=== PATIENT | female | born 1990 | race Caucasian/White ===

== ENCOUNTER 2017-07-02 17:05 | Day surgery (SDC) | payer BC, OTHER ==
[2017-07-02] MEDS ORDERED: Ondansetron 4 MG/2 ML SDV ONE (17:26)
[2017-07-02] MEDS ORDERED: Rocuronium 50 MG/5 ML Vial ONE (17:26)
[2017-07-02] MEDS ORDERED: fentaNYL 250 MCG/5 ML SDV ONE (17:27)
[2017-07-02] MEDS ORDERED: Lidocaine 1% 4 ML ONE (17:27)
[2017-07-02] MEDS ORDERED: Propofol 200 MG/20 ML SDV ONE (17:27)
[2017-07-02] MEDS ORDERED: Bupivacaine 0.5% 30 ML SDV ONE (17:42)
[2017-07-02] MEDS ORDERED: ceFAZolin 1 GM Vial ONE (18:02)
[2017-07-02] MEDS ORDERED: Lactated Ringers 1,000 ML ONE (18:13)
[2017-07-02] MEDS ORDERED: HYDROmorphone 0.5 MG/0.5 ML Syringe IVPUSH PRN (18:55)
[2017-07-02] MEDS ORDERED: fentaNYL 250 MCG/5 ML SDV IVPUSH PRN (18:55)
[2017-07-02] MEDS ORDERED: Ketorolac 30 MG/ML SDV IVPUSH PRN (18:55)
[2017-07-02] MEDS ORDERED: Meperidine PF 50 MG/ML Syringe IVPUSH ONE (18:57)
--- NOTE | 2017-07-02 18:59 | PCM.POSTAN ---
POST ANESTHESIA ASSESSMENT - MENTAL STATUS Mental Status: Somnolent - VITAL SIGNS Pulse Rate: 108 SaO2: 100 Resp Rate: 8 Blood Pressure: 128/67 Temperature: 36.8 C - RESPIRATORY Respiratory Status: Respiratory Rate WNL, Airway Patent, O2 Saturation Stable, Supplemental Oxygen - CARDIOVASCULAR CV Status: Pulse Rate WNL, Blood Pressure Stable - GASTROINTESTINAL GI Status: No Symptoms - PAIN Pain Score: 0 - POST OP HYDRATION Hydration Status: Adequate & Stable - OBSERVATIONS Free Text/Narrative:: no anesthesia complications noted
--- NOTE | 2017-07-02 19:00 | PCM.PREANE ---
Preanesthetic Assessment - Anesthesia/Transfusion/Family Hx Anesthesia History: Prior Anesthesia Without Reaction Family History of Anesthesia Reaction: No Transfusion History: No Prior Transfusion(s) - Review of Systems General: Fatigue, Chills Pulmonary: No Symptoms Cardiovascular: No Symptoms Gastrointestinal: No Symptoms Neurological: No Symptoms Other: Reports: None - Physical Assessment NPO Status Date: 07/02/17 NPO Status Time: 12:30 Pulse: 108 O2 Sat by Pulse Oximetry: 100 Respiratory Rate: 8 Blood Pressure: 128/67 Temperature: 36.8 C Vital Signs: Last Vital Signs Temp 36.8 C 07/02/17 18:59 Pulse 108 H 07/02/17 18:59 Resp 8 L 07/02/17 18:59 BP 128/67 07/02/17 18:59 Pulse Ox 100 07/02/17 18:59 Height: 1.68 m Weight: 68.039 kg ASA Class: 2E Mental Status: Alert & Oriented x3 Airway Class: Mallampati = 1 Dentition: Reports: Normal Dentition Thyro-Mental Finger Breadths: 3 Mouth Opening Finger Breadths: 3 ROM/Head Extension: Full Lungs: Clear to Auscultation, Normal Respiratory Effort Cardiovascular: Regular Rate, Regular Rhythm, No Murmurs - Allergies Allergies/Adverse Reactions: Allergies Allergy/AdvReac Type Severity Reaction Status Date / Time silver nitrate Allergy Blisters Verified 04/26/15 11:49 - Anesthesia Plan Pre-Op Medication Ordered: None - Acknowledgements Anesthesia Type Planned: General Anesthesia Pt an Appropriate Candidate for the Planned Anesthesia: Yes Alternatives and Risks of Anesthesia Discussed w Pt/Guardian: Yes Pt/Guardian Understands and Agrees with Anesthesia Plan: Yes PreAnesthesia Questionnaire HEENT History: Reports: Impaired Vision Gastrointestinal History: Reports: GERD Genitourinary History: Reports: Retention, Urinary, UTI, Recurrent Other Musculoskeletal History: spinal fusion 2002 for scolosis and fractured 4th finger 2007 - Past Surgical History Other Female Surgeries/Procedures: laparoscopy x2 2014 and 2015 ectopic pregnacy Other Musculoskeletal Surgeries/Procedures:: spinal fusion 2002 for scolosis and fractured 4th finger 2007 - SUBSTANCE USE Smoking Status *Q: Never Smoker Second Hand Smoke Exposure: No Days Per Week of Alcohol Use: 0 Number of Drinks Per Day: 0 Total Drinks Per Week: 0 Recreational Drug Use History: No - HOME MEDS Home Medications: Home Meds Acetaminophen [Tylenol] 650 mg PO Q6H PRN #50 tablet 10/07/14 [Rx] Ibuprofen [Motrin] 200 - 800 mg PO Q6H PRN #50 tablet 10/07/14 [Rx] Fish Oil/[place]-3 Fatty Acids [Fish Oil 1,000 MG] 1,000 mg PO DAILY 04/26/15 [ History] Multivitamin [Daily Multiple Vitamin] 1 tab PO DAILY 04/26/15 [History] - CURRENT (IN HOUSE) MEDS Current Meds: Current Medications Fentanyl (Sublimaze) 50 mcg IVPUSH Q5M PRN PRN Reason: PAIN Hydromorphone HCl (Dilaudid) 0.5 mg IVPUSH Q15M PRN PRN Reason: Pain Ketorolac Tromethamine (Toradol) 30 mg IVPUSH ONETIME PRN PRN Reason: Pain Meperidine HCl (Demerol) 12.5 mg IVPUSH ONETIME ONE Stop: 07/02/17 18:58 Discontinued Medications Bupivacaine HCl (Marcaine 0.5%) Confirm Administered Dose 30 ml .ROUTE .STK-MED ONE Stop: 07/02/17 17:43 Last Admin: 07/02/17 17:55 Dose: 30 ml Cefazolin Sodium (Ancef) Confirm Administered Dose 2 gm .ROUTE .STK-MED ONE Stop: 07/02/17 18:03 Fentanyl (Sublimaze) Confirm Administered Dose 250 mcg .ROUTE .STK-MED ONE Stop: 07/02/17 17:28 Lidocaine HCl (Xylocaine-Mpf 1%) Confirm Administered Dose 4 mls @ as directed .ROUTE .STK-MED ONE Stop: 07/02/17 17:28 Lactated Ringer's (Ringers, Lactated) Confirm Administered Dose 1,000 mls @ as directed .ROUTE .STK-MED ONE Stop: 07/02/17 18:14 Ondansetron HCl (Zofran) Confirm Administered Dose 4 mg .ROUTE .STK-MED ONE Stop: 07/02/17 17:27 Propofol (Diprivan 20 Ml) Confirm Administered Dose 200 mg .ROUTE .STK-MED ONE Stop: 07/02/17 17:28 Rocuronium [place] (Zemuron) Confirm Administered Dose 50 mg .ROUTE .STK-MED ONE Stop: 07/02/17 17:27
[2017-07-02] MEDS ORDERED: fentaNYL 100 MCG/2 ML SDV IV PRN (19:04)
--- NOTE | 2017-07-02 19:35 | PCM.OPNOTE ---
- General Post-Op/Procedure Note Date of Surgery/Procedure: 07/02/17 Operative Procedure(s): Laparoscopy with right linear salpingectomy for ectopic [id number] Pre Op Diagnosis: Positive test pelvic pain and vaginal bleeding suspected ectopic right fallopian tube Post-Op Diagnosis: Same Anesthesia Technique: General ET Tube Primary Surgeon: Dontae Burton Secondary Surgeon: Scotty Olivier Anesthesia Provider: Nicho Moreno Reason Ethylbenzene Converter Operator Was Necessary: Patient safety, prevention of comorbidity and cardinal mortality, assistance in difficult procedure. Role of Ethylbenzene Converter Operator: Assist in surgery preventing comorbidity and comortality and assisting and technically difficult procedure. Fluid Replacement, Intraop: 1,700 Output, Urine Amount: 70 EBL in mLs: 25 Drain/Tube Comments:: None Complications: None Condition: Good Free Text/Narrative:: Intake & Output 07/02/17 07/02/17 07/02/17 06:59 14:59 22:59 Output Total 70 Balance -70 Patient was transported to operating room #2 and placed under general anesthesia in low dorsal lithotomy position and prepared and draped in a sterile fashion. Timeout performed. SCDs in place and functioning prior surgery , Ancef 2 g given intravenously prior surgery. Patient having been prepared and draped in a sterile fashion 2 mL of 0.5% Marcaine injected the site of the planned incision at the umbilicus and suprapubic region 5 mm incision made at the umbilicus pneumoperitoneum needle introduced and pneumoperitoneum was obtained 5 mm trocar was introduced. An additional port was placed suprapubically to allow placement of another 5 mm port for manipulation of the tissue and organs of the pelvis. The laparoscopy revealed ectopic and hemoperitoneum of approximately 25 mL of blood. The right fallopian tube had not ruptured the fallopian tube, but blood was egressing from the fimbriated end of the fallopian tube. The suprapubic incision was extended to accommodate the 12 mm port. The 12 mm port was introduced without difficulty. Examination of the right fallopian tube revealed area of cyanosis and swelling consistent with an ectopic . A third port was placed on the right side after transillumination of the abdominal wall revealed no vascular the anterior in that region. A linear salpingostomy was performed and tissue was manipulated carefully out of the fallopian tube. This tissue was sent to pathology for tissue evaluation. Irrigation of the area of the linear salpingostomy was performed and irrigant was then aspirated from the anterior and posterior cul-de -sac. Observation of the area revealed no bleeding. No additional swelling areas of cyanosis to indicate removing additional tissue or making an additional incision in the fallopian tube. Interceed was placed across the area of the linear salpingostomy. After moistening same and further evaluation no bleeding. Sponge needle pack instrument and sharp count correct 2 and the abdominal cavity pneumoperitoneum was reduced and the incisions closed with 0 Vicryl for the area where the 10 mm port had been placed suprapubically. The 3 incisions were then closed with subcuticular 3-0 Monocryl and Dermabond applied. The Luu catheter was removed. Review of the pictures taken image 001 shows blood clot at the end of the fallopian tube in the center of the picture of fallopian tube with ectopic on the left upper quadrant of the picture and the right ovary directly above the blood clot. Image 002 shows a better view of the area of suspected ectopic and right fallopian tube. Image 003 shows a close- up of the fimbriated end of fallopian tube. The ovary is seen in the center of the picture just above the fallopian tube which is swollen and cyanotic consistent with ectopic . Image 004 shows tissue being teased from the fallopian tube after linear salpingostomy. Image 005 shows additional tissue being teased from the fallopian tube which consistent with ectopic ( sent to pathology for confirmation) image 006 shows the linear salpingostomy after removal of what appeared to be ectopic with no bleeding. Right ovary is seen just below the fallopian tube and the large intestines just left of the ovary. Image 007 shows Interceed after placement over the linear salpingostomy area. Image 008 shows the fundus of the uterus anterior cul-de- sac and the left adnexa. Image 009 shows left adnexa. Image 010 shows the right flank incision after removal of the 5 mm trocar with no bleeding. Image 011 shows the suprapubic 12 mm port after closure of the anterior fascia was 0 Vicryl. No bleeding. Image 012 shows the Interceed on the right side just prior to removal of the laparoscope. Talked with the and mother and [id number] all questions were answered voiced satisfaction. I talked with the patient in recovery and explained what procedure was performed and we will discuss again with her tomorrow about the procedure. Blood type is O+.
[2017-07-02] MEDS ORDERED: Ondansetron 4 MG/2 ML SDV IVPUSH PRN (20:11)
[2017-07-02] MEDS ORDERED: Ibuprofen 600 MG Tab PO PRN (20:11)
[2017-07-02] MEDS ORDERED: Docusate Sodium 100 MG Cap PO SCH (21:00)
[2017-07-02] MEDS: Acetaminophen/oxyCODONE 325-5 MG Tab PO PRN (21:25)
[2017-07-03] MEDS: Ketorolac 30 MG/ML SDV IVPUSH SCH ×2 (00:22→07:12)
[2017-07-03 09:12] VITALS: BP 109/74
[2017-07-03] MEDS: Acetaminophen/oxyCODONE 325-5 MG Tab PO PRN (11:43)
--- NOTE | 2017-07-03 11:51 | PCM.DCSUM1 ---
Discharge Summary - Hospital Course Free Text/Narrative:: [facility] Post-Op/Procedure Note Patient Name: GAYLE FERGUSON Date of : 89 Patient Status: Observation Attending Provider: Dontae Burton Date: 07/02/17 19:22 Initialization Date: 07/02/17 19:22 - General Post-Op/Procedure Note Date of Surgery/Procedure: 07/02/17 Operative Procedure(s): Laparoscopy with right linear salpingectomy for ectopic 89395 Pre Op Diagnosis: Positive test pelvic pain and vaginal bleeding suspected ectopic right fallopian tube Post-Op Diagnosis: Same Anesthesia Technique: General ET Tube Primary Surgeon: Dontae Burton Secondary Surgeon: Scotty Olivier Anesthesia Provider: Nicho Moreno Reason Medical Terminologist Was Necessary: Patient safety, prevention of comorbidity and cardinal mortality, assistance in difficult procedure. Role of Medical Terminologist: Assist in surgery preventing comorbidity and comortality and assisting and technically difficult procedure. Fluid Replacement, Intraop: 1,700 Output, Urine Amount: 70 EBL in mLs: 25 Drain/Tube Comments:: None Complications: None Condition: Good Free Text/Narrative:: Intake & Output 07/02/17 07/02/17 07/02/17 06:59 14:59 22:59 Output Total 70 Balance -70 Patient was transported to operating room #2 and placed under general anesthesia in low dorsal lithotomy position and prepared and draped in a sterile fashion. Timeout performed. SCDs in place and functioning prior surgery , Ancef 2 g given intravenously prior surgery. Patient having been prepared and draped in a sterile fashion 2 mL of 0.5% Marcaine injected the site of the planned incision at the umbilicus and suprapubic region 5 mm incision made at the umbilicus pneumoperitoneum needle introduced and pneumoperitoneum was obtained 5 mm trocar was introduced. An additional port was placed suprapubically to allow placement of another 5 mm port for manipulation of the tissue and organs of the pelvis. The laparoscopy revealed ectopic and hemoperitoneum of approximately 25 mL of blood. The right fallopian tube had not ruptured the fallopian tube, but blood was egressing from the fimbriated end of the fallopian tube. The suprapubic incision was extended to accommodate the 12 mm port. The 12 mm port was introduced without difficulty. Examination of the right fallopian tube revealed area of cyanosis and swelling consistent with an ectopic . A third port was placed on the right side after transillumination of the abdominal wall revealed no vascular the anterior in that region. A linear salpingostomy was performed and tissue was manipulated carefully out of the fallopian tube. This tissue was sent to pathology for tissue evaluation. Irrigation of the area of the linear salpingostomy was performed and irrigant was then aspirated from the anterior and posterior cul-de -sac. Observation of the area revealed no bleeding. No additional swelling areas of cyanosis to indicate removing additional tissue or making an additional incision in the fallopian tube. Interceed was placed across the area of the linear salpingostomy. After moistening same and further evaluation no bleeding. Sponge needle pack instrument and sharp count correct 2 and the abdominal cavity pneumoperitoneum was reduced and the incisions closed with 0 Vicryl for the area where the 10 mm port had been placed suprapubically. The 3 incisions were then closed with subcuticular 3-0 Monocryl and Dermabond applied. The Luu catheter was removed. Review of the pictures taken image 001 shows blood clot at the end of the fallopian tube in the center of the picture of fallopian tube with ectopic on the left upper quadrant of the picture and the right ovary directly above the blood clot. Image 002 shows a better view of the area of suspected ectopic and right fallopian tube. Image 003 shows a close- up of the fimbriated end of fallopian tube. The ovary is seen in the center of the picture just above the fallopian tube which is swollen and cyanotic consistent with ectopic . Image 004 shows tissue being teased from the fallopian tube after linear salpingostomy. Image 005 shows additional tissue being teased from the fallopian tube which consistent with ectopic ( sent to pathology for confirmation) image 006 shows the linear salpingostomy after removal of what appeared to be ectopic with no bleeding. Right ovary is seen just below the fallopian tube and the large intestines just left of the ovary. Image 007 shows Interceed after placement over the linear salpingostomy area. Image 008 shows the fundus of the uterus anterior cul-de- sac and the left adnexa. Image 009 shows left adnexa. Image 010 shows the right flank incision after removal of the 5 mm trocar with no bleeding. Image 011 shows the suprapubic 12 mm port after closure of the anterior fascia was 0 Vicryl. No bleeding. Image 012 shows the Interceed on the right side just prior to removal of the laparoscope. Talked with the and mother and [id number] all questions were answered voiced satisfaction. I talked with the patient in recovery and explained what procedure was performed and we will discuss again with her tomorrow about the procedure. Blood type is O+. Patient having no abdominal pain at present. Abdomen soft. Incisions on abdomen normal. No heavy vaginal bleeding. HPI Initial Comments: [facility] Post-Op/Procedure Note Patient Name: GAYLE FERGUSON Date of : 89 Patient Status: Observation Attending Provider: Dontae Burton Date: 07/02/17 19:22 Initialization Date: 07/02/17 19:22 - General Post-Op/Procedure Note Date of Surgery/Procedure: 07/02/17 Operative Procedure(s): Laparoscopy with right linear salpingectomy for ectopic [id number] Pre Op Diagnosis: Positive test pelvic pain and vaginal bleeding suspected ectopic right fallopian tube Post-Op Diagnosis: Same Anesthesia Technique: General ET Tube Primary Surgeon: Dontae Burton Secondary Surgeon: Scotty Olivier Anesthesia Provider: Nicho Moreno Reason Medical Terminologist Was Necessary: Patient safety, prevention of comorbidity and cardinal mortality, assistance in difficult procedure. Role of Medical Terminologist: Assist in surgery preventing comorbidity and comortality and assisting and technically difficult procedure. Fluid Replacement, Intraop: 1,700 Output, Urine Amount: 70 EBL in mLs: 25 Drain/Tube Comments:: None Complications: None Condition: Good Free Text/Narrative:: Intake & Output 07/02/17 07/02/17 07/02/17 06:59 14:59 22:59 Output Total 70 Balance -70 Patient was transported to operating room #2 and placed under general anesthesia in low dorsal lithotomy position and prepared and draped in a sterile fashion. Timeout performed. SCDs in place and functioning prior surgery , Ancef 2 g given intravenously prior surgery. Patient having been prepared and draped in a sterile fashion 2 mL of 0.5% Marcaine injected the site of the planned incision at the umbilicus and suprapubic region 5 mm incision made at the umbilicus pneumoperitoneum needle introduced and pneumoperitoneum was obtained 5 mm trocar was introduced. An additional port was placed suprapubically to allow placement of another 5 mm port for manipulation of the tissue and organs of the pelvis. The laparoscopy revealed ectopic and hemoperitoneum of approximately 25 mL of blood. The right fallopian tube had not ruptured the fallopian tube, but blood was egressing from the fimbriated end of the fallopian tube. The suprapubic incision was extended to accommodate the 12 mm port. The 12 mm port was introduced without difficulty. Examination of the right fallopian tube revealed area of cyanosis and swelling consistent with an ectopic . A third port was placed on the right side after transillumination of the abdominal wall revealed no vascular the anterior in that region. A linear salpingostomy was performed and tissue was manipulated carefully out of the fallopian tube. This tissue was sent to pathology for tissue evaluation. Irrigation of the area of the linear salpingostomy was performed and irrigant was then aspirated from the anterior and posterior cul-de -sac. Observation of the area revealed no bleeding. No additional swelling areas of cyanosis to indicate removing additional tissue or making an additional incision in the fallopian tube. Interceed was placed across the area of the linear salpingostomy. After moistening same and further evaluation no bleeding. Sponge needle pack instrument and sharp count correct 2 and the abdominal cavity pneumoperitoneum was reduced and the incisions closed with 0 Vicryl for the area where the 10 mm port had been placed suprapubically. The 3 incisions were then closed with subcuticular 3-0 Monocryl and Dermabond applied. The Ulu catheter was removed. Review of the pictures taken image 001 shows blood clot at the end of the fallopian tube in the center of the picture of fallopian tube with ectopic on the left upper quadrant of the picture and the right ovary directly above the blood clot. Image 002 shows a better view of the area of suspected ectopic and right fallopian tube. Image 003 shows a close- up of the fimbriated end of fallopian tube. The ovary is seen in the center of the picture just above the fallopian tube which is swollen and cyanotic consistent with ectopic . Image 004 shows tissue being teased from the fallopian tube after linear salpingostomy. Image 005 shows additional tissue being teased from the fallopian tube which consistent with ectopic ( sent to pathology for confirmation) image 006 shows the linear salpingostomy after removal of what appeared to be ectopic with no bleeding. Right ovary is seen just below the fallopian tube and the large intestines just left of the ovary. Image 007 shows Interceed after placement over the linear salpingostomy area. Image 008 shows the fundus of the uterus anterior cul-de- sac and the left adnexa. Image 009 shows left adnexa. Image 010 shows the right flank incision after removal of the 5 mm trocar with no bleeding. Image 011 shows the suprapubic 12 mm port after closure of the anterior fascia was 0 Vicryl. No bleeding. Image 012 shows the Interceed on the right side just prior to removal of the laparoscope. Talked with the and mother and [id number] all questions were answered voiced satisfaction. I talked with the patient in recovery and explained what procedure was performed and we will discuss again with her tomorrow about the procedure. Blood type is O+. Patient having no abdominal pain at present. Abdomen soft. Incisions on abdomen normal. No heavy vaginal bleeding. Brief History: [facility] . Post-Op/Procedure Note. Patient Name: GAYLE FERGUSON [facility] Record Number: [id number]. Date of : [birth year]Patient Status: Observation. Attending Provider: Dontae Burtonccount Number: [id number]. Date: 07/02/17 19:22Initialization Date: 07/02/17 19:22. - General Post-Op/Procedure Note. Date of Surgery/Procedure: 07/02/17. Operative Procedure(s): Laparoscopy with right linear salpingectomy for ectopic 21519. Pre Op Diagnosis: Positive test pelvic pain and vaginal bleeding suspected ectopic right fallopian tube. Post-Op Diagnosis: Same. Anesthesia Technique: General ET Tube. Primary Surgeon: Dontae Burton. Secondary Surgeon: Scotty Olivier. Anesthesia Provider: Nicho Moreno. Reason Medical Terminologist Was Necessary: Patient safety, prevention of comorbidity and cardinal mortality, assistance in difficult procedure. Role of Medical Terminologist: Assist in surgery preventing comorbidity and comortality and assisting and technically difficult procedure. Fluid Replacement, Intraop: 1, 700. Output, Urine Amount: 70. EBL in mLs: 25. Drain/Tube Comments:: None. Complications: None. Condition: Good. Free Text/Narrative:: Intake & Output. 07/02/1710. 06:5914:5922:59. Output Total70. Balance-70. Patient was transported to operating room #2 and placed under general anesthesia in low dorsal lithotomy position and prepared and draped in a sterile fashion. Timeout performed. SCDs in place and functioning prior surgery , Ancef 2 g given intravenously prior surgery. Patient having been prepared and draped in a sterile fashion 2 mL of 0.5% Marcaine injected the site of the planned incision at the umbilicus and suprapubic region 5 mm incision made at the umbilicus pneumoperitoneum needle introduced and pneumoperitoneum was obtained 5 mm trocar was introduced. An additional port was placed suprapubically to allow placement of another 5 mm port for manipulation of the tissue and organs of the pelvis. The laparoscopy revealed ectopic and hemoperitoneum of approximately 25 mL of blood. The right fallopian tube had not ruptured the fallopian tube, but blood was egressing from the fimbriated end of the fallopian tube. The suprapubic incision was extended to accommodate the 12 mm port. The 12 mm port was introduced without difficulty. Examination of the right fallopian tube revealed area of cyanosis and swelling consistent with an ectopic . A third port was placed on the right side after transillumination of the abdominal wall revealed no vascular the anterior in that region. A linear salpingostomy was performed and tissue was manipulated carefully out of the fallopian tube. This tissue was sent to pathology for tissue evaluation. Irrigation of the area of the linear salpingostomy was performed and irrigant was then aspirated from the anterior and posterior cul-de -sac. Observation of the area revealed no bleeding. No additional swelling areas of cyanosis to indicate removing additional tissue or making an additional incision in the fallopian tube. Interceed was placed across the area of the linear salpingostomy. After moistening same and further evaluation no bleeding. Sponge needle pack instrument and sharp count correct 2 and the abdominal cavity pneumoperitoneum was reduced and the incisions closed with 0 Vicryl for the area where the 10 mm port had been placed suprapubically. The 3 incisions were then closed with subcuticular 3-0 Monocryl and Dermabond applied. The Luu catheter was removed. Review of the pictures taken image 001 shows blood clot at the end of the fallopian tube in the center of the picture of fallopian tube with ectopic on the left upper quadrant of the picture and the right ovary directly above the blood clot. Image 002 shows a better view of the area of suspected ectopic and right fallopian tube. Image 003 shows a close-up of the fimbriated end of fallopian tube. The ovary is seen in the center of the picture just above the fallopian tube which is swollen and cyanotic consistent with ectopic . Image 004 shows tissue being teased from the fallopian tube after linear salpingostomy. Image 005 shows additional tissue being teased from the fallopian tube which consistent with ectopic (sent to pathology for confirmation) image 006 shows the linear salpingostomy after removal of what appeared to be ectopic with no bleeding. Right ovary is seen just below the fallopian tube and the large intestines just left of the ovary. Image 007 shows Interceed after placement over the linear salpingostomy area. Image 008 shows the fundus of the uterus anterior cul-de-sac and the left adnexa. Image 009 shows left adnexa. Image 010 shows the right flank incision after removal of the 5 mm trocar with no bleeding. Image 011 shows the suprapubic 12 mm port after closure of the anterior fascia was 0 Vicryl. No bleeding. Image 012 shows the Interceed on the right side just prior to removal of the laparoscope. Talked with the and mother and [id number] all questions were answered voiced satisfaction. I talked with the patient in recovery and explained what procedure was performed and we will discuss again with her tomorrow about the procedure. Blood type is O+. Patient having no abdominal pain at present. Abdomen soft. Incisions on abdomen normal. No heavy vaginal bleeding. - Discharge Data Discharge Date: 07/03/17 Discharge Disposition: Home, Self-Care 01 Condition: Good - Discharge Diagnosis/Problem(s) (1) Nontraumatic hemoperitoneum SNOMED Code(s): 38867015 ICD Code: K66.1 - HEMOPERITONEUM Status: Acute Current Visit: Yes (2) Ectopic SNOMED Code(s): 96531544 ICD Code: O00.9 - ECTOPIC , UNSPECIFIED * DO NOT USE * Status: Acute Priority: High Current Visit: No Onset Date: 03/22/14 Problem Details: Right side - Patient Summary/Data Operative Procedure(s) Performed: Laparoscopy with right linear salpingectomy for ectopic 70116 - Patient Instructions Diet: Regular Diet as Tolerated Activity, Other: Will need to stay all for this week may return to work on Sunday07/09/17. Driving: Do Not Drive Showering/Bathing: May Shower (48 hours), No Tub Bathing/Swimming (6 weeks) Wound/Incision Care: Keep Operative Site/Wound Site Clean and Dry Notify Provider of: Fever, Increased Pain, Swelling and Redness, Drainage, Nausea and/or Vomiting - Discharge Plan Home Medications: Home Meds Acetaminophen [Tylenol] 650 mg PO Q6H PRN #50 tablet 10/07/14 [Rx] Ibuprofen [Motrin] 200 - 800 mg PO Q6H PRN #50 tablet 10/07/14 [Rx] Fish Oil/[place]-3 Fatty Acids [Fish Oil 1,000 MG] 1,000 mg PO DAILY 04/26/15 [ History] Multivitamin [Daily Multiple Vitamin] 1 tab PO DAILY 04/26/15 [History] Docusate Sodium [Colace] 100 mg PO BID cap 07/03/17 [Rx] Forms: ED Department Discharge Referrals: Dontae Burton MD [Primary Care Provider] - (RTC Sunday07/16/2017 [place] [facility] & 07/12/17 after school and One hour before appointment Sunday07/16/2017) - Discharge Summary/Plan Comment DC Time >30 min.: No - Patient Data Vitals - Most Recent: Last Vital Signs Temp 98.4 F 07/03/17 07:45 Pulse 89 07/03/17 07:45 Resp 15 07/03/17 05:10 BP 109/74 07/03/17 07:45 Pulse Ox 100 07/03/17 07:45 Weight - Most Recent: 150 lb I&O - Last 24 hours: Intake & Output 07/02/17 07/03/17 07/03/17 22:59 06:59 14:59 Intake Total 2049 Output Total 70 Balance 1979 Lab Results - Last 24 hrs: Laboratory Results - last 24 hr 07/03/17 07/03/17 Range/Units 06:05 06:05 WBC 7.96 (3.98-10.04) K/mm3 RBC 3.84 L (3.98-5.22) M/mm3 Hgb 11.2 (11.2-15.7) gm/L Hct 33.9 L (34.1-44.9) % MCV 88.3 (79.4-94.8) fl MCH 29.2 (25.6-32.2) pg MCHC 33.0 (32.2-35.5) g/dl RDW Std Deviation 43.3 (36.4-46.3) fL Plt Count 220 (182-369) K/mm3 MPV 10.9 (9.4-12.3) fl Neut % (Auto) 61.0 (34.0-71.1) % Lymph % (Auto) 28.0 (19.3-51.7) % [place] % (Auto) 9.0 (4.7-12.5) % Eos % (Auto) 1.4 (0.7-5.8) Baso % (Auto) 0.5 (0.1-1.2) % Neut # (Auto) 4.85 (1.56-6.13) K/mm3 Lymph # (Auto) 2.23 (1.18-3.74) K/mm3 [place] # (Auto) 0.72 H (0.24-0.36) K/mm3 Eos # (Auto) 0.11 (0.04-0.36) K/mm3 Baso # (Auto) 0.04 (0.01-0.08) K/mm3 HCG, Quant 916.0 mIU/mL Med Orders - Current: Current Medications Docusate Sodium (Colace) 100 mg PO BID [facility] Last Admin: 07/02/17 21:25 Dose: 100 mg Ibuprofen (Motrin) 600 mg PO Q6H PRN PRN Reason: Pain Ketorolac Tromethamine (Toradol) 30 mg IVPUSH Q6H [facility] Stop: 07/03/17 13:01 Last Admin: 07/03/17 07:12 Dose: 30 mg Ondansetron HCl (Zofran) 4 mg IVPUSH Q4H PRN PRN Reason: Nausea/Vomiting Last Admin: 07/03/17 00:19 Dose: 4 mg Oxycodone/Acetaminophen (Percocet 325-5 Mg) 1 - 2 tab PO Q4H PRN PRN Reason: Pain Last Admin: 07/03/17 11:43 Dose: 1 tab Discontinued Medications Bupivacaine HCl (Marcaine 0.5%) Confirm Administered Dose 30 ml .ROUTE .STK-MED ONE Stop: 07/02/17 17:43 Last Admin: 07/02/17 17:55 Dose: 30 ml Cefazolin Sodium (Ancef) Confirm Administered Dose 2 gm .ROUTE .STK-MED ONE Stop: 07/02/17 18:03 Fentanyl (Sublimaze) Confirm Administered Dose 250 mcg .ROUTE .STK-MED ONE Stop: 07/02/17 17:28 Fentanyl (Sublimaze) 50 mcg IVPUSH Q5M PRN PRN Reason: PAIN Fentanyl (Sublimaze) 50 mcg IV Q5M PRN PRN Reason: PAIN Last Admin: 07/02/17 19:15 Dose: 50 mcg Hydromorphone HCl (Dilaudid) 0.5 mg IVPUSH Q15M PRN PRN Reason: Pain Lidocaine HCl (Xylocaine-Mpf 1%) Confirm Administered Dose 4 mls @ as directed .ROUTE .STK-MED ONE Stop: 07/02/17 17:28 Lactated Ringer's (Ringers, Lactated) Confirm Administered Dose 1,000 mls @ as directed .ROUTE .STK-MED ONE Stop: 07/02/17 18:14 Ketorolac Tromethamine (Toradol) 30 mg IVPUSH ONETIME PRN PRN Reason: Pain Last Admin: 07/02/17 19:10 Dose: 30 mg Meperidine HCl (Demerol) 12.5 mg IVPUSH ONETIME ONE Stop: 07/02/17 18:58 Last Admin: 07/02/17 19:04 Dose: 12.5 mg Ondansetron HCl (Zofran) Confirm Administered Dose 4 mg .ROUTE .STK-MED ONE Stop: 07/02/17 17:27 Propofol (Diprivan 20 Ml) Confirm Administered Dose 200 mg .ROUTE .STK-MED ONE Stop: 07/02/17 17:28 Rocuronium [place] (Zemuron) Confirm Administered Dose 50 mg .ROUTE .STFiksu-MED ONE Stop: 07/02/17 17:27 *Q Meaningful Use (DIS) - VTE *Q VTE Criteria *Q: - Stroke *Q Stroke Criteria *Q: - AMI *Q AMI Criteria *Q:
== END 2017-07-03 12:30 | disposition home or self-care (01) ==
LOC: JD.ED 17:05 → JD.SDS 17:09 → JD.ED 17:30 → JD.OB 19:35 → UNDOADMOB 19:35 → JD.SDS 07-03 12:30 → UNDODISOB 07-03 12:30
PROVIDERS: ATTEND Obstetrics & Gynecology
DX: O00.101 Right tubal pregnancy without intrauterine pregnancy (principal); Z88.8 Allergy status to other drugs, medicaments and biological substances; Z79.899 Other long term (current) drug therapy; Z98.890 Other specified postprocedural states; Z72.0 Tobacco use; O20.9 Hemorrhage in early pregnancy, unspecified
CPT/HCPCS: 36415; 59151; 76817; 84144; 84702; 85025; 86850; 86900; 86901; 99284; A9270; C1765; J0690; J1885; J2175; J2405; J3010; J7120; 00840; J2704

== ENCOUNTER 2017-07-07 16:38 | Day surgery (SDC) | payer OTHER ==
--- NOTE | 2017-07-07 17:38 | EDM.PDOC ---
ED HPI GENERAL MEDICAL PROBLEM - General Chief Complaint: WOOD [employer]TER Problem Stated Complaint: ABDOMINAL PAIN Time Seen by Provider: 07/07/17 17:15 Source of Information: Reports: Patient History Limitations: Reports: No Limitations - History of Present Illness INITIAL COMMENTS - FREE TEXT/NARRATIVE: Patient is a 26-year-old female who presents ED complaining of generalized abdominal discomfort and also increasing pain to the right adnexa with intermittent episodes of lightheadedness. Patient states though pain is described as a dull ache that comes and goes. Currently is rated a 1 out of 10. At its peak was a 7 out of 10. States she has a history of ectopic and underwent surgery to remove the ectopic this past Sunday. She states ACG obtain yesterday was higher than before so they are unsure if he remove the ectopic . Transvaginal ultrasound was also performed yesterday and was inclusive. Patient's PCP/WOOD TYPE CUTTER is Dr. Burton. Today she's had increasing pain. States she's had 2 bowel movements today described as being hard requiring the patient to strain to have the BM. No blood present. She has been pushing the fluids. Appetite has been adequate. Has been utilizing Tylenol and ibuprofen since discharge from the hospital for discomfort. She has no additional past medical history and currently taking no medications. Of note patients history is 3 with 3 and total ectopic pregnancies. She did have surgery to repair the right fallopian tube. Lower Abdominal Pain Score (Numeric/FACES): 3 - Related Data Allergies Allergy/AdvReac Type Severity Reaction Status Date / Time silver nitrate Allergy Blisters Verified 07/07/17 17:03 Home Meds: Home Meds Acetaminophen [Tylenol] 650 mg PO Q6H PRN #50 tablet 10/07/14 [Rx] Ibuprofen [Motrin] 200 - 800 mg PO Q6H PRN #50 tablet 10/07/14 [Rx] Fish Oil/[place]-3 Fatty Acids [Fish Oil 1,000 MG] 1,000 mg PO DAILY 04/26/15 [ History] Multivitamin [Daily Multiple Vitamin] 1 tab PO DAILY 04/26/15 [History] Ergocalciferol (Vitamin D2) [Vitamin D2] 2,000 unit PO DAILY 07/07/17 [History] L.acidoph,Paracasei, B.lactis [Probiotic] 1 cap PO DAILY 07/07/17 [History] Past Medical History HEENT History: Reports: Impaired Vision Gastrointestinal History: Reports: GERD Genitourinary History: Reports: Retention, Urinary, UTI, Recurrent WOOD [employer] C[employer]TER History: Reports: Ectopic , Other (See Below) Other OB/BYN History: surgery for removal of ectopic Other Musculoskeletal History: spinal fusion 2002 for scolosis and fractured 4th finger 2007 - Past Surgical History Other Female Surgeries/Procedures: laparoscopy x2 2013 and 2014 ectopic pregnacy Other Musculoskeletal Surgeries/Procedures:: spinal fusion 2002 for scolosis and fractured 4th finger 2007 Social & Family History - Family History Family Medical History: Noncontributory - Tobacco Use Smoking Status *Q: Never Smoker Second Hand Smoke Exposure: No - Caffeine Use Caffeine Use: Reports: Tea - Alcohol Use Days Per Week of Alcohol Use: 0 Number of Drinks Per Day: 0 Total Drinks Per Week: 0 - Recreational Drug Use Recreational Drug Use: No Drug Use in Last 12 Months: No ED ROS GENERAL - Review of Systems Review Of Systems: See Below Constitutional: Reports: Decreased Appetite. Denies: Fever, Chills HEENT: Reports: No Symptoms Respiratory: Reports: No Symptoms Cardiovascular: Reports: No Symptoms GI/Abdominal: Reports: Abdominal Pain (Generalized), Constipation, Decreased Appetite. Denies: Black Stool, Bloody Stool, Diarrhea, Melena, Nausea, Vomiting : Reports: Other (Right adnexa tenderness). Denies: Discharge, Dysuria, Flank Pain, Frequency, Hematuria, Urgency Musculoskeletal: Reports: No Symptoms Neurological: Denies: Dizziness, Headache, Numbness, Tingling ED EXAM - Physical Exam Exam: See Below Exam Limited By: No Limitations General Appearance: Alert, WD/WN, No Apparent Distress Ears: Hearing Grossly Normal Nose: Normal Inspection Throat/Mouth: Normal Inspection, Normal Oropharynx, Normal Voice, No Airway Compromise Neck: Normal Inspection, Supple Respiratory/Chest: No Respiratory Distress, Lungs Clear, Normal Breath Sounds, No Accessory Muscle Use, Chest Non-Tender Cardiovascular: Normal Peripheral Pulses, Regular Rate, Rhythm GI/Abdominal Exam: Normal Bowel Sounds, Soft, No Organomegaly, No Distention, Tender (Right adnexa tenderness) Neurological: Alert, Oriented, CN II-XII Intact, Normal Cognition, No Motor/ Sensory Deficits Psychiatric: Normal Affect, Normal Mood Skin Exam: Warm, Dry, Intact, Normal Color Course - Vital Signs Last Recorded V/S: Last Vital Signs Temp 98.3 F 07/07/17 17:06 Pulse 87 07/07/17 17:06 Resp 16 07/07/17 21:34 BP 132/67 07/07/17 17:06 Pulse Ox 100 07/07/17 21:34 - Orders/Labs/Meds Orders: Active Orders 24 hr Category Date Time Status Patient Status [ADT] Routine ADT 07/07/17 21:48 Active OB Transvaginal [US] Stat Exams 07/07/17 18:52 Taken Sodium Chloride 0.9% [Normal Saline] 1,000 ml Med 07/07/17 21:30 Active IV ASDIRECTED Schedule Procedure [COMM] Stat Oth 07/07/17 21:46 Ordered Medication Orders Sodium Chloride (Normal Saline) 1,000 mls @ 150 mls/hr IV ASDIRECTED SONIA Last Admin: 07/07/17 21:46 Dose: 150 mls/hr Labs: Laboratory Tests 07/07/17 07/07/17 07/07/17 Range/Units 17:49 17:56 17:56 WBC 10.24 H (3.98-10.04) K/mm3 RBC 4.75 (3.98-5.22) M/mm3 Hgb 14.0 (11.2-15.7) gm/L Hct 41.5 (34.1-44.9) % MCV 87.4 (79.4-94.8) fl MCH 29.5 (25.6-32.2) pg MCHC 33.7 (32.2-35.5) g/dl RDW Std Deviation 42.9 (36.4-46.3) fL Plt Count 336 (182-369) K/mm3 MPV 10.2 (9.4-12.3) fl Neut % (Auto) 75.0 H (34.0-71.1) % Lymph % (Auto) 17.2 L (19.3-51.7) % [place] % (Auto) 6.2 (4.7-12.5) % Eos % (Auto) 1.2 (0.7-5.8) Baso % (Auto) 0.2 (0.1-1.2) % Neut # (Auto) 7.69 H (1.56-6.13) K/mm3 Lymph # (Auto) 1.76 (1.18-3.74) K/mm3 [place] # (Auto) 0.63 H (0.24-0.36) K/mm3 Eos # (Auto) 0.12 (0.04-0.36) K/mm3 Baso # (Auto) 0.02 (0.01-0.08) K/mm3 Sodium 140 (136-145) mEq/L Potassium 3.8 (3.5-5.1) mEq/L Chloride 102 (98-107) mEq/L Carbon Dioxide 26 (21-32) mEq/L Anion Gap 15.8 H (5-15) BUN 10 (7-18) mg/dL Creatinine 0.9 (0.55-1.02) mg/dL Est Cr Clr Drug Dosing 88.68 mL/min Estimated GFR (MDRD) > 60 (>60) mL/min BUN/Creatinine Ratio 11.1 L (14-18) Glucose 98 (74-106) mg/dL Calcium 9.8 (8.5-10.1) mg/dL Total Bilirubin 0.5 (0.2-1.0) mg/dL AST 27 (15-37) U/L ALT 40 (14-59) U/L Alkaline Phosphatase 79 (46-116) U/L C-Reactive Protein 1.0 (<1.0) mg/dL Total Protein 9.3 H (6.4-8.2) g/dl Albumin 4.6 (3.4-5.0) g/dl Globulin 4.7 gm/dL Albumin/Globulin Ratio 1.0 (1-2) Lipase 98 (73-393) U/L HCG, Quant 4190.0 mIU/mL Urine Color Yellow (Yellow) Urine Appearance Clear (Clear) Urine pH 6.5 (5.0-8.0) Ur Specific [place] 1.015 (1.005-1.030) Urine Protein Negative (Negative) Urine Glucose (UA) Negative (Negative) Urine Ketones Trace H (Negative) Urine Occult Blood 1+ H (Negative) Urine Nitrite Negative (Negative) Urine Bilirubin Negative (Negative) Urine Urobilinogen 0.2 (0.2-1.0) Ur Leukocyte Esterase Negative (Negative) Urine RBC 0-5 (0-5) /hpf Urine WBC 0-5 (0-5) /hpf Ur Epithelial Cells 0-5 (0-5) /hpf Urine Bacteria Few (FEW) /hpf Urine Mucus Not seen (FEW) /hpf Meds: Medications Generic Name Dose Route Start Last Admin Trade Name Chidi PRN Reason Stop Dose Admin Sodium Chloride 1,000 mls @ 150 mls/hr 07/07/17 21:30 07/07/17 21:46 Normal Saline IV 150 mls/hr ASDIRECTED SONIA Administration Discontinued Medications Generic Name Dose Route Start Last Admin Trade Name Chidi PRN Reason Stop Dose Admin Bupivacaine HCl Confirm 07/07/17 21:24 Marcaine 0.5% Administered 07/07/17 21:25 Dose 30 ml .ROUTE .STK-MED ONE Cefazolin Sodium Confirm 07/07/17 21:58 Ancef Administered 07/07/17 21:59 Dose 2 gm .ROUTE .STK-MED ONE Dexamethasone Confirm 07/07/17 21:34 Dexamethasone Administered 07/07/17 21:35 Dose 20 mg .ROUTE .STK-MED ONE Fentanyl Confirm 07/07/17 21:32 Sublimaze Administered 07/07/17 21:33 Dose 250 mcg .ROUTE .STK-MED ONE Hydromorphone HCl 0.5 mg 07/07/17 17:42 07/07/17 18:05 Dilaudid IVPUSH 07/07/17 17:43 0.5 mg ONETIME ONE Administration Sodium Chloride 1,000 mls @ 999 mls/hr 07/07/17 17:42 07/07/17 18:02 Normal Saline IV 07/07/17 18:42 999 mls/hr ONETIME ONE Administration Lidocaine HCl Confirm 07/07/17 21:34 Xylocaine-Mpf 1% Administered 07/07/17 21:35 Dose 4 mls @ as directed .ROUTE .STK-MED ONE Midazolam HCl Confirm 07/07/17 21:32 Versed 1 Mg/Ml Administered 07/07/17 21:33 Dose 2 mg .ROUTE .STK-MED ONE Ondansetron HCl 4 mg 07/07/17 17:42 07/07/17 18:03 Zofran IVPUSH 07/07/17 17:43 4 mg ONETIME ONE Administration Ondansetron HCl Confirm 07/07/17 21:34 Zofran Administered 07/07/17 21:35 Dose 4 mg .ROUTE .STK-MED ONE Propofol Confirm 07/07/17 21:32 Diprivan 20 Ml Administered 07/07/17 21:33 Dose 200 mg .ROUTE .STK-MED ONE Rocuronium [place] Confirm 07/07/17 21:34 Zemuron Administered 07/07/17 21:35 Dose 50 mg .ROUTE .STK-MED ONE Succinylcholine Chloride Confirm 07/07/17 21:34 Quelicin Administered 07/07/17 21:35 Dose 200 mg .ROUTE .STK-MED ONE - Re-Assessments/Exams Free Text/Narrative Re-Assessment/Exam: Ordered IV with normal saline, Dilaudid 0.5 mg IVP, and Zofran 4 mg IVP. Initial labs and studies include CBC, chem 14, hCG quantitative, lipase, CRP, UA , and also two-view of the abdomen. HCG obtained today indicated 4190 which is increased at 2837 that was obtained yesterday. Will hold off on obtaining x-ray of the abdomen. I have ordered a OB transvaginal ultrasound. 07/07/17 20:17 Labs reviewed: White blood cell count 10.24, hemoglobin 14.0, platelet count 336, neutrophil percent is 75.0, neutrophil #7.69, sodium 140, potassium 3.8, AG 15.8, creatinine 0.9, glucose 98, lipase 98, hCG quantitative 4190, urine positive for trace ketones and occult blood 1+. Preliminary results of ultrasound concerning for ectopic . Final interpretation is pending. [address] Burton patient's [employer]OD TYPE [employer] specialist. Did this just to give him a heads up although he is not on-call this evening. Will provide final interpretation the ultrasound once available. 07/07/17 20:51 [facility] contacted the ER advising patient has a live ectopic at the right adnexa. Large amount of blood within the pelvis. Presumably patient has a ruptured ectopic . Ordered additional IV be established with NS 150mls/hr. Type and screen obtained. Vital signs have been stable. [address] Burton patient's [employer]OD TYPE [employer] Specialist notified and will be in to see the patient. Requested to call Dr. Carroll on-call WOOD TYPE C[employer] specialist to come in to assist. OR staff has been notified. 215 Patient taken to the OR for Surgery. Departure - Departure Time of Disposition: 21:50 Disposition: DC/Tfer to Critical Access 66 Condition: Fair Clinical Impression: Ectopic Qualifiers: Location of ectopic : tubal Intrauterine status: without intrauterine Laterality: right Qualified Code(s): O00.101 - Right tubal without intrauterine - Discharge Information - My Orders Last 24 Hours: My Active Orders 07/07/17 18:52 OB Transvaginal [US] Stat 07/07/17 21:30 Sodium Chloride 0.9% [Normal Saline] 1,000 ml IV ASDIRECTED - Assessment/Plan Last 24 Hours: My Active Orders 07/07/17 18:52 OB Transvaginal [US] Stat 07/07/17 21:30 Sodium Chloride 0.9% [Normal Saline] 1,000 ml IV ASDIRECTED
[2017-07-07] MEDS ORDERED: Ondansetron 4 MG/2 ML SDV IVPUSH ONE (17:42)
[2017-07-07] MEDS ORDERED: Sodium Chloride 0.9% 1,000 ML IV ONE (17:42)
[2017-07-07] MEDS ORDERED: HYDROmorphone 0.5 MG/0.5 ML Syringe IVPUSH ONE (17:42)
--- NOTE | 2017-07-07 21:16 | PCM.HP ---
H&P History of Present Illness - General Date of Service: 07/07/17 Admit Problem/Dx: ectopic with hemoperitomium Source of Information: Patient History Limitations: Reports: No Limitations - History of Present Illness Initial Comments - Free Text/Narative: 26 y/o with laparoscopy earlier this week for ectopic . In an effort to save the tuve a salpingostomy performed and what looked like ectopic removed. pathology report revealed blood clot. The [place] BHCG levels have been rising. Patient seen in clinic yesterday and USG revealed no definite ectopic and patient having no pain. Precautions given and pain started today, persist and increadsing. USG today revealed ectopic and hemoperitoneum. Risk of maternal if the ectopic not removed. A positive. Will take to OR and plan to remove the remaining tube and ectopic . Patient and agree with removal of the tube this time. Symptom Onset Date: 07/07/17 Duration of Symptoms: Reports: Hour(s):, Getting Worse Location: Reports: Abdomen Improves with: Reports: None Worsens with: Reports: None Associated Symptoms: Reports: No Other Symptoms Lower Abdominal Pain Score (Numeric/FACES): 3 - Related Data Allergies/Adverse Reactions: Allergies Allergy/AdvReac Type Severity Reaction Status Date / Time silver nitrate Allergy Blisters Verified 07/07/17 17:03 Home Medications: Home Meds Acetaminophen [Tylenol] 650 mg PO Q6H PRN #50 tablet 10/07/14 [Rx] Ibuprofen [Motrin] 200 - 800 mg PO Q6H PRN #50 tablet 10/07/14 [Rx] Fish Oil/[place]-3 Fatty Acids [Fish Oil 1,000 MG] 1,000 mg PO DAILY 04/26/15 [ History] Multivitamin [Daily Multiple Vitamin] 1 tab PO DAILY 04/26/15 [History] Ergocalciferol (Vitamin D2) [Vitamin D2] 2,000 unit PO DAILY 07/07/17 [History] L.acidoph,Paracasei, B.lactis [Probiotic] 1 cap PO DAILY 07/07/17 [History] Past Medical History HEENT History: Reports: Impaired Vision Gastrointestinal History: Reports: GERD Genitourinary History: Reports: Retention, Urinary, UTI, Recurrent [employer]PER History: Reports: Ectopic , Other (See Below) Other OB/BYN History: surgery for removal of ectopic Other Musculoskeletal History: spinal fusion 2002 for scolosis and fractured 4th finger 2007 - Past Surgical History Other Female Surgeries/Procedures: laparoscopy x2 2013 and 2014 ectopic pregnacy Other Musculoskeletal Surgeries/Procedures:: spinal fusion 2002 for scolosis and fractured 4th finger 2007 Social & Family History - Family History Family Medical History: Noncontributory - Tobacco Use Smoking Status *Q: Never Smoker Second Hand Smoke Exposure: No - Caffeine Use Caffeine Use: Reports: Tea - Alcohol Use Days Per Week of Alcohol Use: 0 Number of Drinks Per Day: 0 Total Drinks Per Week: 0 - Recreational Drug Use Recreational Drug Use: No Drug Use in Last 12 Months: No H&P Review of Systems - Review of Systems: Review Of Systems: See Below General: Reports: No Symptoms HEENT: Reports: No Symptoms Pulmonary: Reports: No Symptoms Cardiovascular: Reports: No Symptoms Gastrointestinal: Reports: Abdominal Pain Genitourinary: Reports: No Symptoms Musculoskeletal: Reports: No Symptoms Skin: Reports: No Symptoms Psychiatric: Reports: No Symptoms Neurological: Reports: No Symptoms Hematologic/Lymphatic: Reports: No Symptoms Immunologic: Reports: No Symptoms Exam - Exam Exam: See Below - Vital Signs Vital Signs: Last Vital Signs Temp 98.3 F 07/07/17 17:06 Pulse 87 07/07/17 17:06 Resp 16 07/07/17 17:06 BP 132/67 07/07/17 17:06 Pulse Ox 100 07/07/17 17:06 Weight: 150 lb - Exam General: Alert, Oriented, 4 HEENT: Conjunctiva Clear, Mucosa Moist & [place], Normal Nasal Septum, Posterior Pharynx Clear, TMs Clear, PERRLA Neck: Supple, Trachea Midline, 2 Lungs: Clear to Auscultation, Normal Respiratory Effort Cardiovascular: Regular Rate, Regular Rhythm GI/Abdominal Exam: Normal Bowel Sounds, Soft, Non-Tender, No Organomegaly, No Distention, No Abnormal Bruit, No Mass, Pelvis Stable (Female) Exam: Normal External Exam, Normal Speculum Exam, Normal Bimanual Exam Rectal (Female) Exam: Normal Exam, Normal Rectal Tone Extremities: Normal Inspection, Normal Range of Motion, Non-Tender, No Pedal Edema, Normal Capillary Refill Skin: Warm, Dry, Intact Neurological: Cranial Nerves Intact, Reflexes Equal Bilateral Neuro Extensive - Mental Status: Alert, Oriented x3, Normal Mood/Affect, Normal Cognition Neuro Extensive - Motor, Sensory, Reflexes: CN II-XII Intact, Normal Gait, Normal Reflexes Psychiatric: Alert, Normal Affect, Normal Mood - Patient Data Lab Results Last 24 hrs: Laboratory Results - last 24 hr 07/07/17 07/07/17 07/07/17 Range/Units 17:49 17:56 17:56 WBC 10.24 H (3.98-10.04) K/mm3 RBC 4.75 (3.98-5.22) M/mm3 Hgb 14.0 (11.2-15.7) gm/L Hct 41.5 (34.1-44.9) % MCV 87.4 (79.4-94.8) fl MCH 29.5 (25.6-32.2) pg MCHC 33.7 (32.2-35.5) g/dl RDW Std Deviation 42.9 (36.4-46.3) fL Plt Count 336 (182-369) K/mm3 MPV 10.2 (9.4-12.3) fl Neut % (Auto) 75.0 H (34.0-71.1) % Lymph % (Auto) 17.2 L (19.3-51.7) % [place] % (Auto) 6.2 (4.7-12.5) % Eos % (Auto) 1.2 (0.7-5.8) Baso % (Auto) 0.2 (0.1-1.2) % Neut # (Auto) 7.69 H (1.56-6.13) K/mm3 Lymph # (Auto) 1.76 (1.18-3.74) K/mm3 [place] # (Auto) 0.63 H (0.24-0.36) K/mm3 Eos # (Auto) 0.12 (0.04-0.36) K/mm3 Baso # (Auto) 0.02 (0.01-0.08) K/mm3 Sodium 140 (136-145) mEq/L Potassium 3.8 (3.5-5.1) mEq/L Chloride 102 (98-107) mEq/L Carbon Dioxide 26 (21-32) mEq/L Anion Gap 15.8 H (5-15) BUN 10 (7-18) mg/dL Creatinine 0.9 (0.55-1.02) mg/dL Est Cr Clr Drug Dosing 88.68 mL/min Estimated GFR (MDRD) > 60 (>60) mL/min BUN/Creatinine Ratio 11.1 L (14-18) Glucose 98 (74-106) mg/dL Calcium 9.8 (8.5-10.1) mg/dL Total Bilirubin 0.5 (0.2-1.0) mg/dL AST 27 (15-37) U/L ALT 40 (14-59) U/L Alkaline Phosphatase 79 (46-116) U/L C-Reactive Protein 1.0 (<1.0) mg/dL Total Protein 9.3 H (6.4-8.2) g/dl Albumin 4.6 (3.4-5.0) g/dl Globulin 4.7 gm/dL Albumin/Globulin Ratio 1.0 (1-2) Lipase 98 (73-393) U/L HCG, Quant 4190.0 mIU/mL Urine Color Yellow (Yellow) Urine Appearance Clear (Clear) Urine pH 6.5 (5.0-8.0) Ur Specific [place] 1.015 (1.005-1.030) Urine Protein Negative (Negative) Urine Glucose (UA) Negative (Negative) Urine Ketones Trace H (Negative) Urine Occult Blood 1+ H (Negative) Urine Nitrite Negative (Negative) Urine Bilirubin Negative (Negative) Urine Urobilinogen 0.2 (0.2-1.0) Ur Leukocyte Esterase Negative (Negative) Urine RBC 0-5 (0-5) /hpf Urine WBC 0-5 (0-5) /hpf Ur Epithelial Cells 0-5 (0-5) /hpf Urine Bacteria Few (FEW) /hpf Urine Mucus Not seen (FEW) /hpf Result Diagrams: 07/07/17 17:56 07/07/17 17:56 *Q Meaningful Use (ADM) - VTE *Q VTE Criteria *Q: - Stroke *Q Stroke Criteria *Q: - AMI *Q AMI Criteria *Q: - Problem List (1) Ectopic SNOMED Code(s): 40127292 ICD Code: O00.90 - UNSPECIFIED ECTOPIC WITHOUT INTRAUTERINE Status: Acute Current Visit: Yes Qualifiers: Location of ectopic : tubal Intrauterine status: without intrauterine Laterality: right Qualified Code(s): O00.101 - Right tubal without intrauterine (2) Nontraumatic hemoperitoneum SNOMED Code(s): 24630756 ICD Code: K66.1 - HEMOPERITONEUM Status: Acute Current Visit: No Problem List Initiated/Reviewed/Updated: No Orders Last 24hrs: Active Orders 24 hr Category Date Time Status OB Transvaginal [US] Stat Exams 07/07/17 18:52 Taken Assessment/Plan Comment:: Proceed with laparoscopy/laparotomy.
[2017-07-07] MEDS ORDERED: Bupivacaine 0.5% 30 ML SDV ONE (21:24)
[2017-07-07] MEDS ORDERED: Sodium Chloride 0.9% 1,000 ML IV SCH (21:30)
[2017-07-07] MEDS ORDERED: Propofol 200 MG/20 ML SDV ONE (21:32)
[2017-07-07] MEDS ORDERED: fentaNYL 250 MCG/5 ML SDV ONE (21:32)
[2017-07-07] MEDS ORDERED: Midazolam 1 MG/ML 2 ML SDV ONE (21:32)
[2017-07-07] MEDS ORDERED: Succinylcholine 200 MG/10 ML MDV ONE (21:34)
[2017-07-07] MEDS ORDERED: Dexamethasone 4 MG/ML 5 ML MDV ONE (21:34)
[2017-07-07] MEDS ORDERED: Lidocaine 1% 4 ML ONE (21:34)
[2017-07-07] MEDS ORDERED: Rocuronium 50 MG/5 ML Vial ONE (21:34)
[2017-07-07] MEDS ORDERED: Ondansetron 4 MG/2 ML SDV ONE (21:34)
--- NOTE | 2017-07-07 21:34 | PCM.PREANE ---
Preanesthetic Assessment - Procedure Proposed Procedure: Laparoscopic removal of ectopic - Anesthesia/Transfusion/Family Hx Anesthesia History: Prior Anesthesia Without Reaction Family History of Anesthesia Reaction: No Transfusion History: No Prior Transfusion(s) Intubation History: Unknown - Review of Systems General: No Symptoms Pulmonary: No Symptoms Cardiovascular: No Symptoms Gastrointestinal: Abdominal Pain Neurological: No Symptoms Other: Reports: None - Physical Assessment NPO Status Date: 07/07/17 NPO Status Time: 13:30 O2 Sat by Pulse Oximetry: 100 Respiratory Rate: 16 Vital Signs: Last Vital Signs Temp 36.8 C 07/07/17 17:06 Pulse 87 07/07/17 17:06 Resp 16 07/07/17 17:06 BP 132/67 07/07/17 17:06 Pulse Ox 100 07/07/17 17:06 Height: 1.68 m Weight: 68.039 kg ASA Class: 1E Mental Status: Alert & Oriented x3 Dentition: Reports: Normal Dentition Thyro-Mental Finger Breadths: 3 Mouth Opening Finger Breadths: 3 ROM/Head Extension: Full Lungs: Clear to Auscultation, Normal Respiratory Effort Cardiovascular: Regular Rate, Regular Rhythm - Lab Values: Laboratory Last Values WBC 10.24 K/mm3 (3.98-10.04) H 07/07/17 17:56 RBC 4.75 M/mm3 (3.98-5.22) 07/07/17 17:56 Hgb 14.0 gm/L (11.2-15.7) 07/07/17 17:56 Hct 41.5 % (34.1-44.9) 07/07/17 17:56 MCV 87.4 fl (79.4-94.8) 07/07/17 17:56 MCH 29.5 pg (25.6-32.2) 07/07/17 17:56 MCHC 33.7 g/dl (32.2-35.5) 07/07/17 17:56 RDW Std Deviation 42.9 fL (36.4-46.3) 07/07/17 17:56 Plt Count 336 K/mm3 (182-369) 07/07/17 17:56 MPV 10.2 fl (9.4-12.3) 07/07/17 17:56 Neut % (Auto) 75.0 % (34.0-71.1) H 07/07/17 17:56 Lymph % (Auto) 17.2 % (19.3-51.7) L 07/07/17 17:56 [place] % (Auto) 6.2 % (4.7-12.5) 07/07/17 17:56 Eos % (Auto) 1.2 (0.7-5.8) 07/07/17 17:56 Baso % (Auto) 0.2 % (0.1-1.2) 07/07/17 17:56 Neut # (Auto) 7.69 K/mm3 (1.56-6.13) H 07/07/17 17:56 Lymph # (Auto) 1.76 K/mm3 (1.18-3.74) 07/07/17 17:56 [place] # (Auto) 0.63 K/mm3 (0.24-0.36) H 07/07/17 17:56 Eos # (Auto) 0.12 K/mm3 (0.04-0.36) 07/07/17 17:56 Baso # (Auto) 0.02 K/mm3 (0.01-0.08) 07/07/17 17:56 Sodium 140 mEq/L (136-145) 07/07/17 17:56 Potassium 3.8 mEq/L (3.5-5.1) 07/07/17 17:56 Chloride 102 mEq/L (98-107) 07/07/17 17:56 Carbon Dioxide 26 mEq/L (21-32) 07/07/17 17:56 Anion Gap 15.8 (5-15) H 07/07/17 17:56 BUN 10 mg/dL (7-18) 07/07/17 17:56 Creatinine 0.9 mg/dL (0.55-1.02) 07/07/17 17:56 Est Cr Clr Drug Dosing 88.68 mL/min 07/07/17 17:56 Estimated GFR (MDRD) > 60 mL/min (>60) 07/07/17 17:56 BUN/Creatinine Ratio 11.1 (14-18) L 07/07/17 17:56 Glucose 98 mg/dL (74-106) 07/07/17 17:56 Calcium 9.8 mg/dL (8.5-10.1) 10/28/17 17:56 Total Bilirubin 0.5 mg/dL (0.2-1.0) 07/07/17 17:56 AST 27 U/L (15-37) 07/07/17 17:56 ALT 40 U/L (14-59) 07/07/17 17:56 Alkaline Phosphatase 79 U/L (46-116) 07/07/17 17:56 C-Reactive Protein 1.0 mg/dL (<1.0) 07/07/17 17:56 Total Protein 9.3 g/dl (6.4-8.2) H 07/07/17 17:56 Albumin 4.6 g/dl (3.4-5.0) 07/07/17 17:56 Globulin 4.7 gm/dL 07/07/17 17:56 Albumin/Globulin Ratio 1.0 (1-2) 07/07/17 17:56 Lipase 98 U/L (73-393) 07/07/17 17:56 HCG, Quant 4190.0 mIU/mL 07/07/17 17:56 Urine Color Yellow (Yellow) 07/07/17 17:49 Urine Appearance Clear (Clear) 07/07/17 17:49 Urine pH 6.5 (5.0-8.0) 07/07/17 17:49 Ur Specific [place] 1.015 (1.005-1.030) 07/07/17 17:49 Urine Protein Negative (Negative) 07/07/17 17:49 Urine Glucose (UA) Negative (Negative) 07/07/17 17:49 Urine Ketones Trace (Negative) H 07/07/17 17:49 Urine Occult Blood 1+ (Negative) H 07/07/17 17:49 Urine Nitrite Negative (Negative) 07/07/17 17:49 Urine Bilirubin Negative (Negative) 07/07/17 17:49 Urine Urobilinogen 0.2 (0.2-1.0) 07/07/17 17:49 Ur Leukocyte Esterase Negative (Negative) 07/07/17 17:49 Urine RBC 0-5 /hpf (0-5) 07/07/17 17:49 Urine WBC 0-5 /hpf (0-5) 07/07/17 17:49 Ur Epithelial Cells 0-5 /hpf (0-5) 07/07/17 17:49 Urine Bacteria Few /hpf (FEW) 07/07/17 17:49 Urine Mucus Not seen /hpf (FEW) 07/07/17 17:49 - Allergies Allergies/Adverse Reactions: Allergies Allergy/AdvReac Type Severity Reaction Status Date / Time silver nitrate Allergy Blisters Verified 07/07/17 17:03 - Blood Blood Available: No Product(s) Available: None - Anesthesia Plan Pre-Op Medication Ordered: None - Acknowledgements Anesthesia Type Planned: General Anesthesia Pt an Appropriate Candidate for the Planned Anesthesia: Yes Alternatives and Risks of Anesthesia Discussed w Pt/Guardian: Yes Pt/Guardian Understands and Agrees with Anesthesia Plan: Yes PreAnesthesia Questionnaire HEENT History: Reports: Impaired Vision Gastrointestinal History: Reports: GERD Genitourinary History: Reports: Retention, Urinary, UTI, 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 , Other (See Below) Other OB/BYN History: surgery for removal of ectopic Other Musculoskeletal History: spinal fusion 2002 for scolosis and fractured 4th finger 2007 - Past Surgical History Other Female Surgeries/Procedures: laparoscopy x2 2013 and 2014 ectopic pregnacy Other Musculoskeletal Surgeries/Procedures:: spinal fusion 2002 for scolosis and fractured 4th finger 2007 - SUBSTANCE USE Smoking Status *Q: Never Smoker Tobacco Use Within Last Twelve Months: No Second Hand Smoke Exposure: No Days Per Week of Alcohol Use: 0 Number of Drinks Per Day: 0 Total Drinks Per Week: 0 Recreational Drug Use History: No - HOME MEDS Home Medications: Home Meds Acetaminophen [Tylenol] 650 mg PO Q6H PRN #50 tablet 10/07/14 [Rx] Ibuprofen [Motrin] 200 - 800 mg PO Q6H PRN #50 tablet 10/07/14 [Rx] Fish Oil/[place]-3 Fatty Acids [Fish Oil 1,000 MG] 1,000 mg PO DAILY 04/26/15 [ History] Multivitamin [Daily Multiple Vitamin] 1 tab PO DAILY 04/26/15 [History] Ergocalciferol (Vitamin D2) [Vitamin D2] 2,000 unit PO DAILY 07/07/17 [History] L.acidoph,Paracasei, B.lactis [Probiotic] 1 cap PO DAILY 07/07/17 [History] - CURRENT (IN HOUSE) MEDS Current Meds: Current Medications Sodium Chloride (Normal Saline) 1,000 mls @ 150 mls/hr IV ASDIRECTED SONIA Discontinued Medications Dexamethasone (Dexamethasone) Confirm Administered Dose 20 mg .ROUTE .STK-MED ONE Stop: 07/07/17 21:35 Fentanyl (Sublimaze) Confirm Administered Dose 250 mcg .ROUTE .STK-MED ONE Stop: 07/07/17 21:33 Hydromorphone HCl (Dilaudid) 0.5 mg IVPUSH ONETIME ONE Stop: 07/07/17 17:43 Last Admin: 07/07/17 18:05 Dose: 0.5 mg Sodium Chloride (Normal Saline) 1,000 mls @ 999 mls/hr IV ONETIME ONE Stop: 07/07/17 18:42 Last Admin: 07/07/17 18:02 Dose: 999 mls/hr Lidocaine HCl (Xylocaine-Mpf 1%) Confirm Administered Dose 4 mls @ as directed .ROUTE .STK-MED ONE Stop: 07/07/17 21:35 Midazolam HCl (Versed 1 Mg/Ml) Confirm Administered Dose 2 mg .ROUTE .STK-MED ONE Stop: 07/07/17 21:33 Ondansetron HCl (Zofran) 4 mg IVPUSH ONETIME ONE Stop: 07/07/17 17:43 Last Admin: 07/07/17 18:03 Dose: 4 mg Ondansetron HCl (Zofran) Confirm Administered Dose 4 mg .ROUTE .STK-MED ONE Stop: 07/07/17 21:35 Propofol (Diprivan 20 Ml) Confirm Administered Dose 200 mg .ROUTE .STK-MED ONE Stop: 07/07/17 21:33 Rocuronium [place] (Zemuron) Confirm Administered Dose 50 mg .ROUTE .STK-MED ONE Stop: 07/07/17 21:35 Succinylcholine Chloride (Quelicin) Confirm Administered Dose 200 mg .ROUTE .STK -MED ONE Stop: 07/07/17 21:35
[2017-07-07] MEDS ORDERED: ceFAZolin 1 GM Vial ONE (21:58)
[2017-07-07] MEDS ORDERED: Neostigmine Methylsulfate 1 MG/ML 5 ML Syringe ONE (23:07)
[2017-07-07] MEDS ORDERED: diphenhydrAMINE 50 MG/ML SDV IVPUSH PRN (23:27)
[2017-07-07] MEDS ORDERED: Ondansetron 4 MG/2 ML SDV IVPUSH PRN (23:27)
[2017-07-07] MEDS ORDERED: Meperidine PF 50 MG/ML Syringe ONE (23:27)
[2017-07-07] MEDS ORDERED: fentaNYL 100 MCG/2 ML SDV IVPUSH PRN (23:27)
[2017-07-07] MEDS ORDERED: HYDROmorphone 0.5 MG/0.5 ML Syringe IVPUSH PRN (23:27)
[2017-07-07] MEDS ORDERED: Meperidine PF 50 MG/ML Syringe IVPUSH PRN (23:27)
--- NOTE | 2017-07-07 23:27 | PCM.POSTAN ---
POST ANESTHESIA ASSESSMENT - MENTAL STATUS Mental Status: Alert, Oriented - VITAL SIGNS Pulse Rate: 100 SaO2: 100 Resp Rate: 14 Blood Pressure: 132/70 Temperature: 37.0 C - RESPIRATORY Respiratory Status: Respiratory Rate WNL, Airway Patent, O2 Saturation Stable, Supplemental Oxygen - CARDIOVASCULAR CV Status: Pulse Rate WNL, Blood Pressure Stable - GASTROINTESTINAL GI Status: No Symptoms - PAIN Pain Score: 0 - POST OP HYDRATION Hydration Status: Adequate & Stable
--- NOTE | 2017-07-07 23:31 | PCM.OPNOTE ---
- General Post-Op/Procedure Note Date of Surgery/Procedure: 07/07/17 Operative Procedure(s): Laparoscopy with right salpingectomy for suspected ectopic path report pending Pre Op Diagnosis: Hemoperitoneum ectopic by ultrasound. Post-Op Diagnosis: Same Anesthesia Technique: General ET Tube Primary Surgeon: Dontae Burton Secondary Surgeon: Steve Carroll Anesthesia Provider: Avery Ashby Reason Comic Book Writer Was Necessary: Difficult nature of surgery, patient safety, decrease patient comorbidity and comortality. Role of Comic Book Writer: Help with surgery manipulate and hold tissue for primary surgeon to operate and help make decisions concerning surgical procedure. Fluid Replacement, Intraop: 1,500 Output, Urine Amount: 50 EBL in mLs: 200 Drain/Tube Comments:: None Complications: None Condition: Good Free Text/Narrative:: Patient was transported to operating room #2 and placed under general anesthesia in the supine position. Luu catheter placed gravity drainage. SCDs in place and functioning prior surgery. Ancef 2 g given intravenously prior surgery. Prepared and draped in a sterile fashion. Timeout performed. Utilizing previous incisions at the umbilicus right lower quadrant and suprapubic region pneumoperitoneum was obtained and 12 mm trocar introduced suprapubically and 5 mm trocar introduced. The right flank incision. The laparoscopy revealed hemoperitoneum of approximately 200 mL of blood and clotted blood. The right fallopian tube had ruptured. The clots were cleaned from the cul-de-sac anteriorly and posteriorly and the right tube was grasped utilizing Enseal crossclamping activating and incising the right fallopian tube was removed by creating pedicles crossclamping activating and incising the patient's left tubal stump was also removed it did appear to have blood within it. Utilizing Endo bag the tube and suspected ectopic were removed. Irrigation carried out hemostasis confirmed and the areas of surgery both ovaries appeared normal the clots were cleaned from the gutters and cul-de-sac sponge needle pack asthma sharp count correct 2 in pneumoperitoneum was reduced and the pubic incision closed at the anterior fascia with 0 Vicryl. The 3 incisions at the skin were closed with 3-0 Monocryl interrupted sutures. Dermabond applied. Luu catheter had been placed gravity drainage this was removed at the end of the procedure. Patient was transported postanesthesia care unit in satisfactory condition no blood transfusions were required. Photos: Image 001 practice picture to make sure the camera was working. Image 002 shows the ruptured right ectopic (suspected) image 003 close-up of the suspected ruptured ectopic . Image 004 shows the left fallopian tube stump from previous salpingectomy for ectopic . Image 005 shows the removal of the left fallopian tube stump with Enseal. Image 006 shows no bleeding from the area of the removal of the left fallopian tube image 007 shows area from right fallopian tube removal with no bleeding. Image 008 shows the right flank trocar insertion site no bleeding image 009 shows a suprapubic insertion site no bleeding Talk with patient's and family and the patient concerning surgery and all questions answered voiced satisfaction.
[2017-07-07] MEDS ORDERED: Ketorolac 30 MG/ML SDV ONE (23:38)
[2017-07-08] MEDS ORDERED: Acetaminophen/oxyCODONE 325-5 MG Tab PO PRN (01:04)
[2017-07-08] MEDS ORDERED: Ondansetron 4 MG/2 ML SDV IVPUSH PRN (01:04)
[2017-07-08] MEDS ORDERED: HYDROmorphone 0.5 MG/0.5 ML Syringe IVPUSH PRN (01:04)
[2017-07-08] MEDS ORDERED: Ketorolac 15 MG/ML SDV IVPUSH PRN (05:30)
[2017-07-08] MEDS ORDERED: Docusate Sodium 100 MG Cap PO SCH (09:00)
[2017-07-08 09:15] VITALS: BP 110/52
--- NOTE | 2017-07-08 09:44 | PCM.SN ---
- Free Text/Narrative Note: Post Op Note S: Patient reports feeling well overall. Pain minimal and controlled with oral medications. Tolerating small amounts of regular diet. Reports passing flatus. Voiding small amounts without difficulty but feels like she is not completely emptying her bladder. Ambulating without difficulty. Denies any nausea or vomiting. Denies any fevers or chills. O: Vitals Last Vital Signs Temp 37.1 C 07/08/17 08:00 Pulse 56 L 07/08/17 08:00 Resp 14 07/08/17 08:00 BP 110/52 L 07/08/17 08:00 Pulse Ox 100 07/08/17 08:00 UOP: Intake & Output 07/07/17 07/08/17 07/08/17 22:59 06:59 14:59 Intake Total 1805 Output Total 50 275 Balance -50 1530 Gen: No acute distress, alert and oriented Lungs: Clear to auscultation bilaterally Heart: Regular rate and rhythm Abdomen: Soft, minimal appropriate tenderness, nondistended, bowel sounds positive Incisions: Healing well, no bleeding or discharge, no erythema present, skin glue covering incisions A/P: 26-year-old with suspected ectopic status post laparoscopic bilateral salpingectomy POD #1 Doing well No concerns at this time Routine post op care Monitor vitals Give patient Urecholine 10 mg 1 to assist with minor urinary retention Anticipate discharge home today Steve Carroll MD 9:43 AM 07/08/2017
--- NOTE | 2017-07-08 09:47 | PCM.DCSUM1 ---
Discharge Summary - Hospital Course Free Text/Narrative:: 26 y/o with laparoscopy earlier this week for ectopic . In an effort to save the tuve a salpingostomy performed and what looked like ectopic removed. pathology report revealed blood clot. The [place] BHCG levels have been rising. Patient seen in clinic yesterday and USG revealed no definite ectopic and patient having no pain. Precautions given and pain started today, persist and increadsing. USG today revealed ectopic and hemoperitoneum. Risk of maternal if the ectopic not removed. A positive. Will take to OR and plan to remove the remaining tube and ectopic . Patient and agree with removal of the tube this time. HPI Initial Comments: 26 y/o with laparoscopy earlier this week for ectopic . In an effort to save the tuve a salpingostomy performed and what looked like ectopic removed. pathology report revealed blood clot. The [place] BHCG levels have been rising. Patient seen in clinic yesterday and USG revealed no definite ectopic and patient having no pain. Precautions given and pain started today, persist and increadsing. USG today revealed ectopic and hemoperitoneum. Risk of maternal if the ectopic not removed. A positive. Will take to OR and plan to remove the remaining tube and ectopic . Patient and agree with removal of the tube this time. Brief History: 26 y/o with laparoscopy earlier this week for ectopic . In an effort to save the tuve a salpingostomy performed and what looked like ectopic removed. pathology report revealed blood clot. The [place] BHCG levels have been rising. Patient seen in clinic yesterday and USG revealed no definite ectopic and patient having no pain. Precautions given and pain started today, persist and increadsing. USG today revealed ectopic and hemoperitoneum. Risk of maternal if the ectopic not removed. A positive. Will take to OR and plan to remove the remaining tube and ectopic . Patient and agree with removal of the tube this time. - Discharge Data Discharge Date: 07/08/17 Discharge Disposition: Home, Self-Care 01 Condition: Good - Discharge Diagnosis/Problem(s) (1) Status post bilateral salpingectomy SNOMED Code(s): 133022803 ICD Code: Z90.79 - ACQUIRED ABSENCE OF OTHER GENITAL ORGAN(S) Status: Acute (2) Ectopic SNOMED Code(s): 08335187 ICD Code: O00.90 - UNSPECIFIED ECTOPIC WITHOUT INTRAUTERINE Status: Acute Qualifiers: Location of ectopic : tubal Intrauterine status: without intrauterine Laterality: right Qualified Code(s): O00.101 - Right tubal without intrauterine (3) Nontraumatic hemoperitoneum SNOMED Code(s): 88230653 ICD Code: K66.1 - HEMOPERITONEUM Status: Acute - Patient Summary/Data Operative Procedure(s) Performed: Laparoscopy with right salpingectomy for suspected ectopic path report pending Complications: None Consults: None Recommended Follow-up Testing/Procedures: Repeat quantitative beta hCG on , 07/12/2017 and follow-up results in clinic that morning with Dr. Bruton. Hospital Course: 26 y/o with laparoscopy earlier this week for ectopic . In an effort to save the tuve a salpingostomy performed and what looked like ectopic removed. pathology report revealed blood clot. The [place] BHCG levels have been rising. Patient seen in clinic yesterday and USG revealed no definite ectopic and patient having no pain. Precautions given and pain started today, persist and increadsing. USG today revealed ectopic and hemoperitoneum. Risk of maternal if the ectopic not removed. A positive. Will take to OR and plan to remove the remaining tube and ectopic . Patient and agree with removal of the tube this time. Patient underwent a laparoscopic bilateral salpingectomy on 07/07/2017 that was overall uncomplicated. Please see operative report for full details. In the morning of postoperative day #1 she reported that she was doing well and her pain was very well controlled with occasional Percocet and Toradol. She reports that she was tolerating regular diet without any nausea or vomiting. She is emanating without difficulty. She is voiding small amounts and felt like she was not completely emptying her bladder. She had a bladder scan that was done after voiding that showed 240 mL of remaining urine. She was given a dose of Urecholine 10 mg 4 urinary retention. She was passing flatus. She desired to be discharged home in the morning of postoperative day #1. She'll follow up with Dr. Burton in the clinic on , 07/12/2017, and she will have a repeat quantitative beta hCG done in the morning prior to her appointment with Dr. Burton. - Patient Instructions Diet: Regular Diet as Tolerated Activity: As Tolerated Driving: Do Not Drive (Until 07/09/17) Showering/Bathing: May Shower Wound/Incision Care: Keep Operative Site/Wound Site Clean and Dry Notify Provider of: Fever, Increased Pain, Swelling and Redness, Drainage, Nausea and/or Vomiting - Discharge Plan Prescriptions/Med Rec: Bethanechol Chloride [Urecholine] 10 mg PO QID 5 Days #20 tablet Home Medications: Home Meds Acetaminophen [Tylenol] 650 mg PO Q6H PRN #50 tablet 10/07/14 [Rx] Ibuprofen [Motrin] 200 - 800 mg PO Q6H PRN #50 tablet 10/07/14 [Rx] Fish Oil/[place]-3 Fatty Acids [Fish Oil 1,000 MG] 1,000 mg PO DAILY 04/26/15 [ History] Multivitamin [Daily Multiple Vitamin] 1 tab PO DAILY 04/26/15 [History] Ergocalciferol (Vitamin D2) [Vitamin D2] 2,000 unit PO DAILY 07/07/17 [History] L.acidoph,Paracasei, B.lactis [Probiotic] 1 cap PO DAILY 07/07/17 [History] Bethanechol Chloride [Urecholine] 10 mg PO QID 5 Days #20 tablet 07/08/17 [Rx] Patient Handouts: Ectopic Forms: ED Department Discharge Referrals: Dontae Burton MD [Primary Care Provider] - 07/12/17 (Labs on Sunday. Call for followup appointment that morning to follow up on the lab result.) - Discharge Summary/Plan Comment DC Time >30 min.: No - Patient Data Vitals - Most Recent: Last Vital Signs Temp 37.1 C 07/08/17 08:00 Pulse 56 L 07/08/17 08:00 Resp 14 07/08/17 08:00 BP 110/52 L 07/08/17 08:00 Pulse Ox 100 07/08/17 08:00 Weight - Most Recent: 68.039 kg I&O - Last 24 hours: Intake & Output 07/07/17 07/08/17 07/08/17 22:59 06:59 14:59 Intake Total 1805 Output Total 50 275 Balance -50 1530 Lab Results - Last 24 hrs: Laboratory Results - last 24 hr 07/07/17 07/07/17 07/07/17 Range/Units 17:49 17:56 17:56 WBC 10.24 H (3.98-10.04) K/mm3 RBC 4.75 (3.98-5.22) M/mm3 Hgb 14.0 (11.2-15.7) gm/L Hct 41.5 (34.1-44.9) % MCV 87.4 (79.4-94.8) fl MCH 29.5 (25.6-32.2) pg MCHC 33.7 (32.2-35.5) g/dl RDW Std Deviation 42.9 (36.4-46.3) fL Plt Count 336 (182-369) K/mm3 MPV 10.2 (9.4-12.3) fl Neut % (Auto) 75.0 H (34.0-71.1) % Lymph % (Auto) 17.2 L (19.3-51.7) % [place] % (Auto) 6.2 (4.7-12.5) % Eos % (Auto) 1.2 (0.7-5.8) Baso % (Auto) 0.2 (0.1-1.2) % Neut # (Auto) 7.69 H (1.56-6.13) K/mm3 Lymph # (Auto) 1.76 (1.18-3.74) K/mm3 [place] # (Auto) 0.63 H (0.24-0.36) K/mm3 Eos # (Auto) 0.12 (0.04-0.36) K/mm3 Baso # (Auto) 0.02 (0.01-0.08) K/mm3 Manual Slide Review Sodium 140 (136-145) mEq/L Potassium 3.8 (3.5-5.1) mEq/L Chloride 102 (98-107) mEq/L Carbon Dioxide 26 (21-32) mEq/L Anion Gap 15.8 H (5-15) BUN 10 (7-18) mg/dL Creatinine 0.9 (0.55-1.02) mg/dL Est Cr Clr Drug Dosing 88.68 mL/min Estimated GFR (MDRD) > 60 (>60) mL/min BUN/Creatinine Ratio 11.1 L (14-18) Glucose 98 (74-106) mg/dL Calcium 9.8 (8.5-10.1) mg/dL Total Bilirubin 0.5 (0.2-1.0) mg/dL AST 27 (15-37) U/L ALT 40 (14-59) U/L Alkaline Phosphatase 79 (46-116) U/L C-Reactive Protein 1.0 (<1.0) mg/dL Total Protein 9.3 H (6.4-8.2) g/dl Albumin 4.6 (3.4-5.0) g/dl Globulin 4.7 gm/dL Albumin/Globulin Ratio 1.0 (1-2) Lipase 98 (73-393) U/L HCG, Quant 4190.0 mIU/mL Urine Color Yellow (Yellow) Urine Appearance Clear (Clear) Urine pH 6.5 (5.0-8.0) Ur Specific [place] 1.015 (1.005-1.030) Urine Protein Negative (Negative) Urine Glucose (UA) Negative (Negative) Urine Ketones Trace H (Negative) Urine Occult Blood 1+ H (Negative) Urine Nitrite Negative (Negative) Urine Bilirubin Negative (Negative) Urine Urobilinogen 0.2 (0.2-1.0) Ur Leukocyte Esterase Negative (Negative) Urine RBC 0-5 (0-5) /hpf Urine WBC 0-5 (0-5) /hpf Ur Epithelial Cells 0-5 (0-5) /hpf Urine Bacteria Few (FEW) /hpf Urine Mucus Not seen (FEW) /hpf 07/08/17 07/08/17 Range/Units 07:02 07:02 WBC 7.27 (3.98-10.04) K/mm3 RBC 3.67 L (3.98-5.22) M/mm3 Hgb 10.7 L (11.2-15.7) gm/L Hct 32.4 L (34.1-44.9) % MCV 88.3 (79.4-94.8) fl MCH 29.2 (25.6-32.2) pg MCHC 33.0 (32.2-35.5) g/dl RDW Std Deviation 42.8 (36.4-46.3) fL Plt Count 233 (182-369) K/mm3 MPV 10.5 (9.4-12.3) fl Neut % (Auto) 90.0 H (34.0-71.1) % Lymph % (Auto) 8.0 L (19.3-51.7) % [place] % (Auto) 1.9 L (4.7-12.5) % Eos % (Auto) 0 L (0.7-5.8) Baso % (Auto) 0.0 L (0.1-1.2) % Neut # (Auto) 6.54 H (1.56-6.13) K/mm3 Lymph # (Auto) 0.58 L (1.18-3.74) K/mm3 [place] # (Auto) 0.14 L (0.24-0.36) K/mm3 Eos # (Auto) 0.00 L (0.04-0.36) K/mm3 Baso # (Auto) 0.00 L (0.01-0.08) K/mm3 Manual Slide Review Normal smear Sodium (136-145) mEq/L Potassium (3.5-5.1) mEq/L Chloride (98-107) mEq/L Carbon Dioxide (21-32) mEq/L Anion Gap (5-15) BUN (7-18) mg/dL Creatinine (0.55-1.02) mg/dL Est Cr Clr Drug Dosing mL/min Estimated GFR (MDRD) (>60) mL/min BUN/Creatinine Ratio (14-18) Glucose (74-106) mg/dL Calcium (8.5-10.1) mg/dL Total Bilirubin (0.2-1.0) mg/dL AST (15-37) U/L ALT (14-59) U/L Alkaline Phosphatase (46-116) U/L C-Reactive Protein (<1.0) mg/dL Total Protein (6.4-8.2) g/dl Albumin (3.4-5.0) g/dl Globulin gm/dL Albumin/Globulin Ratio (1-2) Lipase (73-393) U/L HCG, Quant 1744.0 mIU/mL Urine Color (Yellow) Urine Appearance (Clear) Urine pH (5.0-8.0) Ur Specific [place] (1.005-1.030) Urine Protein (Negative) Urine Glucose (UA) (Negative) Urine Ketones (Negative) Urine Occult Blood (Negative) Urine Nitrite (Negative) Urine Bilirubin (Negative) Urine Urobilinogen (0.2-1.0) Ur Leukocyte Esterase (Negative) Urine RBC (0-5) /hpf Urine WBC (0-5) /hpf Ur Epithelial Cells (0-5) /hpf Urine Bacteria (FEW) /hpf Urine Mucus (FEW) /hpf Med Orders - Current: Current Medications Bethanechol Chloride (Urecholine) 10 mg PO ONETIME ONE Stop: 07/08/17 09:40 Diphenhydramine HCl (Benadryl) 25 mg IVPUSH Q6H PRN PRN Reason: Pruritis Docusate Sodium (Colace) 100 mg PO BID SONIA Hydromorphone HCl (Dilaudid) 0.5 mg IVPUSH Q15M PRN PRN Reason: Pain (severe 7-10) Hydromorphone HCl (Dilaudid) 0.2 mg IVPUSH Q2H PRN PRN Reason: Pain (severe 7-10) Ketorolac Tromethamine (Toradol) 30 mg IVPUSH Q6H PRN PRN Reason: Pain (moderate 4-6) Stop: 07/12/17 23:22 Last Admin: 07/08/17 05:05 Dose: 30 mg Ondansetron HCl (Zofran) 4 mg IVPUSH Q4H PRN PRN Reason: Nausea/Vomiting Oxycodone/Acetaminophen (Percocet 325-5 Mg) 2 tab PO Q4H PRN PRN Reason: Pain (moderate 4-6) Last Admin: 07/08/17 05:04 Dose: 1 tab Discontinued Medications Bupivacaine HCl (Marcaine 0.5%) Confirm Administered Dose 30 ml .ROUTE .STK-MED ONE Stop: 07/07/17 21:25 Last Admin: 07/07/17 22:18 Dose: 9 ml Cefazolin Sodium (Ancef) Confirm Administered Dose 2 gm .ROUTE .STK-MED ONE Stop: 07/07/17 21:59 Dexamethasone (Dexamethasone) Confirm Administered Dose 20 mg .ROUTE .STK-MED ONE Stop: 07/07/17 21:35 Fentanyl (Sublimaze) Confirm Administered Dose 250 mcg .ROUTE .STK-MED ONE Stop: 07/07/17 21:33 Fentanyl (Sublimaze) 50 mcg IVPUSH Q5M PRN PRN Reason: Pain Last Admin: 07/08/17 00:07 Dose: 50 mcg Glycopyrrolate () Confirm Administered Dose 1 mg .ROUTE .STK-MED ONE Stop: 07/07/17 23:08 Hydromorphone HCl (Dilaudid) 0.5 mg IVPUSH ONETIME ONE Stop: 07/07/17 17:43 Last Admin: 07/07/17 18:05 Dose: 0.5 mg Sodium Chloride (Normal Saline) 1,000 mls @ 999 mls/hr IV ONETIME ONE Stop: 07/07/17 18:42 Last Admin: 07/07/17 18:02 Dose: 999 mls/hr Sodium Chloride (Normal Saline) 1,000 mls @ 150 mls/hr IV ASDIRECTED SONIA Last Admin: 07/07/17 21:46 Dose: 150 mls/hr Lidocaine HCl (Xylocaine-Mpf 1%) Confirm Administered Dose 4 mls @ as directed .ROUTE .STK-MED ONE Stop: 07/07/17 21:35 Ketorolac Tromethamine (Toradol) Confirm Administered Dose 30 mg .ROUTE .STK- MED ONE Stop: 07/07/17 23:39 Meperidine HCl (Demerol) Confirm Administered Dose 50 mg .ROUTE .STK-MED ONE Stop: 07/07/17 23:28 Meperidine HCl (Demerol) 12.5 mg IVPUSH ONETIME PRN PRN Reason: Shivering Midazolam HCl (Versed 1 Mg/Ml) Confirm Administered Dose 2 mg .ROUTE .STK-MED ONE Stop: 07/07/17 21:33 Neostigmine Methylsulfate (Neostigmine) Confirm Administered Dose 5 mg .ROUTE .STK-MED ONE Stop: 07/07/17 23:08 Ondansetron HCl (Zofran) 4 mg IVPUSH ONETIME ONE Stop: 07/07/17 17:43 Last Admin: 07/07/17 18:03 Dose: 4 mg Ondansetron HCl (Zofran) Confirm Administered Dose 4 mg .ROUTE .STK-MED ONE Stop: 07/07/17 21:35 Ondansetron HCl (Zofran) 4 mg IVPUSH ONETIME PRN PRN Reason: Nausea/Vomiting Propofol (Diprivan 20 Ml) Confirm Administered Dose 200 mg .ROUTE .STK-MED ONE Stop: 07/07/17 21:33 Rocuronium [place] (Zemuron) Confirm Administered Dose 50 mg .ROUTE .STK-MED ONE Stop: 07/07/17 21:35 Succinylcholine Chloride (Quelicin) Confirm Administered Dose 200 mg .ROUTE .STK -MED ONE Stop: 07/07/17 21:35 *Q Meaningful Use (DIS) - VTE *Q VTE Criteria *Q: - Stroke *Q Stroke Criteria *Q: - AMI *Q AMI Criteria *Q:
--- NOTE | 2017-07-08 10:02 | US ---
First trimester obstetrical ultrasound: Multiple real-time images were obtained transvaginally. Comparison: Previous obstetrical ultrasound of 07/02/17. Thickened endometrium is seen without intrauterine gestational sac. Complex free fluid seen within the pelvis compatible with blood. Increasing size of right adnexal abnormality from prior exam which shows a small gestational sac as well as pole. This is compatible with ectopic which has ruptured. Heartbeat seen within the pole at 99 bpm. [place]-rump length measures around 6 weeks 2 days. Impression: 1. Findings compatible with ectopic within the right adnexa. Ectopic shows evidence of rupture with fair amount of blood being seen within the pelvis. These findings are an interval change from previous exam. Diagnostic code #5 I agree with preliminary report issued by [facility] ([facility] report finalized on 07/07/17, 9:50 PM Central Time)
--- NOTE | 2017-07-08 16:35 | PCM48HPAN ---
Post Anesthesia Note - EVALUATION WITHIN 48HRS OF ANESTHETIC Vital Signs in Normal Range: Yes Patient Participated in Evaluation: No (Patient discharged prior to assessment. Doing well according to RN) Respiratory Function Stable: Yes Airway Patent: Yes Cardiovascular Function Stable: Yes Hydration Status Stable: Yes Pain Control Satisfactory: Yes Nausea and Vomiting Control Satisfactory: Yes Mental Status Recovered: Yes
== END 2017-07-08 10:00 | disposition home or self-care (01) ==
LOC: JD.ED 16:38 → JD.SDS 21:01
PROVIDERS: ATTEND Obstetrics & Gynecology
PROC: 10T24ZZ Resection of Products of Conception, Ectopic, Percutaneous Endoscopic Approach (ICD-10-PCS; principal; 2017-07-07)
PROC: 0UB54ZZ Excision of Right Fallopian Tube, Percutaneous Endoscopic Approach (ICD-10-PCS; 2017-07-07)
DX: O00.101 Right tubal pregnancy without intrauterine pregnancy (principal); K66.1 Hemoperitoneum; K21.9 Gastro-esophageal reflux disease without esophagitis; Z98.1 Arthrodesis status; Z79.899 Other long term (current) drug therapy; Z91.048 Other nonmedicinal substance allergy status; Z98.890 Other specified postprocedural states; Z87.440 Personal history of urinary (tract) infections
CPT/HCPCS: 36415; 59151; 76817; 80053; 81001; 83690; 84702; 85025; 86140; 96361; 96374; 96375; 99285; A9270; J0330; J0690; J1100; J1170; J1885; J2175; J2250; J2405; J2710; J3010; J7040; 00840; 99284; J2704

== ENCOUNTER 2020-11-28 07:57 | Emergency (ER) | payer OTHER ==
[2020-11-28] MEDS ORDERED: Ondansetron 4 MG/2 ML SDV IVPUSH ONE (08:20)
[2020-11-28] MEDS ORDERED: Sodium Chloride 0.9% 10 ML Syringe FLUSH PRN (08:20)
[2020-11-28] MEDS ORDERED: Sodium Chloride 0.9% 500 ML IV SCH (08:30)
--- NOTE | 2020-11-28 08:48 | EDM.PDOC ---
ED HPI GENERAL MEDICAL PROBLEM - General Chief Complaint: Abdominal Pain Stated Complaint: VOMITING,CHILLS,BODY ACHES Time Seen by Provider: 11/28/20 08:15 Source of Information: Reports: Patient History Limitations: Reports: No Limitations - History of Present Illness INITIAL COMMENTS - FREE TEXT/NARRATIVE: The patient presents with body aches, headache, nausea, vomiting and abdominal pain. This has been going on for about 8 hours. She has generalized abdominal pain that is mild. She has no cough, congestion, runny nose, chest pain, or shortness of breath. She still has her gallbladder and appendix. She did not eat any bad food as far as she knows and she has not been around anyone who is sick. She has no diarrhea or dysuria. Onset: Gradual Duration: Hour(s): (8) Location: Reports: Abdomen, Generalized Quality: Reports: Ache Severity: Moderate Improves with: Reports: None Worsens with: Reports: None Associated Symptoms: Reports: Fever/Chills, Headaches, Nausea/Vomiting. Denies: Chest Pain, Cough, Shortness of Breath Generalized Pain Score (Numeric/FACES): 3 - Related Data Allergies Allergy/AdvReac Type Severity Reaction Status Date / Time silver nitrate Allergy Blisters Verified 11/28/20 08:08 Home Meds: Home Meds Acetaminophen [Tylenol] 650 mg PO Q6H PRN #50 tablet 10/07/14 [Rx] Ibuprofen [Motrin] 200 - 800 mg PO Q6H PRN #50 tablet 10/07/14 [Rx] Fish Oil/[place]-3 Fatty Acids [Fish Oil 1,000 MG] 1,000 mg PO DAILY 04/26/15 [History] Multivitamin [Daily Multiple Vitamin] 1 tab PO DAILY 04/26/15 [History] Ergocalciferol (Vitamin D2) [Vitamin D2] 2,000 unit PO DAILY 07/07/17 [History] Past Medical History HEENT History: Reports: Impaired Vision Gastrointestinal History: Reports: GERD Genitourinary History: Reports: Retention, Urinary, UTI, Recurrent 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 , 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 (See Below) 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: surgery 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 removal of ectopic Other Musculoskeletal History: spinal fusion 2002 for scolosis and fractured 4th finger 2007 - Past Surgical History Other Female Surgeries/Procedures: laparoscopy x2 2013 and 2014 ectopic pregnacy Other Musculoskeletal Surgeries/Procedures:: spinal fusion 2002 for scolosis and fractured 4th finger 2007 Social & Family History - Family History Family Medical History: No Pertinent Family History - Tobacco Use Tobacco Use Status *Q: Never Tobacco User - Caffeine Use Caffeine Use: Reports: Tea - Recreational Drug Use Recreational Drug Use: No ED ROS GENERAL - Review of Systems Review Of Systems: See Below Constitutional: Reports: Chills, Weakness. Denies: Fever HEENT: Reports: No Symptoms Respiratory: Reports: No Symptoms Cardiovascular: Reports: No Symptoms Endocrine: Reports: No Symptoms GI/Abdominal: Reports: Abdominal Pain, Nausea, Vomiting. Denies: Diarrhea : Reports: No Symptoms Musculoskeletal: Reports: Muscle Pain ED EXAM, GI/ABD - Physical Exam Exam: See Below Exam Limited By: No Limitations General Appearance: Alert, No Apparent Distress Ears: Normal External Exam Nose: Normal Inspection Head: Atraumatic, Normocephalic Neck: Normal Inspection, Supple, Non-Tender Respiratory/Chest: No Respiratory Distress, Lungs Clear, Normal Breath Sounds Cardiovascular: Regular Rate, Rhythm, No Edema, No Murmur GI/Abdominal Exam: Soft, No Organomegaly, No Mass, Tender (Mild generalized abdominal pain) Extremities: Normal Inspection Course - Vital Signs Last Recorded V/S: Last Vital Signs Temp 97.2 F 11/28/20 08:11 Pulse 97 11/28/20 08:11 Resp 13 11/28/20 08:11 BP 112/77 11/28/20 08:11 Pulse Ox 98 11/28/20 08:11 Orthostatic Blood Pressure [ 108/73 Standing] Orthostatic Blood Pressure [ 114/97 Sitting] Orthostatic Blood Pressure [ 112/79 Supine] - Orders/Labs/Meds Orders: Active Orders 24 hr Category Date Time Status Peripheral IV Care [RC] . DIRECTED Care 11/28/20 08:21 Active Sodium Chloride 0.9% [Normal Saline] 500 ml Med 11/28/20 08:30 Active IV .BOLUS Sodium Chloride 0.9% [Saline Flush] Med 11/28/20 08:20 Active 10 ml FLUSH ASDIRECTED PRN ED Antiemetic Medication Reflex [OM.PC] Click to Edit Oth 11/28/20 08:20 Ordered Peripheral IV Insertion Adult [OM.PC] Urgent Oth 11/28/20 08:20 Ordered Medication Orders Sodium Chloride (Normal Saline) 500 mls @ 1,000 mls/hr IV [facility] Last Admin: 11/28/20 08:55 Dose: 1,000 mls/hr Documented by: JOSÉ MANUEL Sodium Chloride (Sodium Chloride 0.9% 10 Ml Syringe) 10 ml FLUSH ASDIRECTED PRN PRN Reason: Keep Vein Open Last Admin: 11/28/20 08:56 Dose: 10 ml Documented by: JOSÉ MANUEL Labs: Laboratory Tests 11/28/20 11/28/20 11/28/20 Range/Units 08:20 08:20 08:20 WBC 8.54 (3.98-10.04) K/mm3 RBC 4.99 (3.98-5.22) M/mm3 Hgb 14.3 (11.2-15.7) gm/dl Hct 43.3 (34.1-44.9) % MCV 86.8 (79.4-94.8) fl MCH 28.7 (25.6-32.2) pg MCHC 33.0 (32.2-35.5) g/dl RDW Std Deviation 41.4 (36.4-46.3) fL Plt Count 288 (182-369) K/mm3 MPV 10.1 (9.4-12.3) fl Neut % (Auto) 93.0 H (34.0-71.1) % Lymph % (Auto) 2.6 L (19.3-51.7) % [facility] % (Auto) 3.6 L (4.7-12.5) % Eos % (Auto) 0.6 L (0.7-5.8) Baso % (Auto) 0.1 (0.1-1.2) % Neut # (Auto) 7.94 H (1.56-6.13) K/mm3 Lymph # (Auto) 0.22 L (1.18-3.74) K/mm3 [facility] # (Auto) 0.31 (0.24-0.36) K/mm3 Eos # (Auto) 0.05 (0.04-0.36) K/mm3 Baso # (Auto) 0.01 (0.01-0.08) K/mm3 Manual Slide Review Abnormal smear Sodium 142 (136-145) mEq/L Potassium 3.7 (3.5-5.1) mEq/L Chloride 105 (98-107) mEq/L Carbon Dioxide 24 (21-32) mEq/L Anion Gap 16.7 H (5-15) BUN 18 (7-18) mg/dL Creatinine 0.8 (0.55-1.02) mg/dL Est Cr Clr Drug Dosing 96.26 mL/min Estimated GFR (MDRD) > 60 (>60) mL/min BUN/Creatinine Ratio 22.5 H (14-18) Glucose 110 H (74-106) mg/dL Calcium 9.0 (8.5-10.1) mg/dL Total Bilirubin 0.9 (0.2-1.0) mg/dL AST 15 (15-37) U/L ALT 24 (14-59) U/L Alkaline Phosphatase 68 (46-116) U/L Total Protein 8.0 (6.4-8.2) g/dl Albumin 3.9 (3.4-5.0) g/dl Globulin 4.1 gm/dL Albumin/Globulin Ratio 1.0 (1-2) Lipase 62 L (73-393) U/L HCG, Qual (NEGATIVE) Urine Color Yellow (Yellow) Urine Appearance Clear (Clear) Urine pH 5.5 (5.0-8.0) Ur Specific [place] > or = 1.030 (1.005-1.030) Urine Protein Negative (Negative) Urine Glucose (UA) Negative (Negative) Urine Ketones 1+ H (Negative) Urine Occult Blood Negative (Negative) Urine Nitrite Negative (Negative) Urine Bilirubin Negative (Negative) Urine Urobilinogen 0.2 (0.2-1.0) Ur Leukocyte Esterase Negative (Negative) Urine RBC 0-5 (0-5) /hpf Urine WBC 0-5 (0-5) /hpf Ur Epithelial Cells 0-5 (0-5) /hpf Urine Bacteria Moderate H (FEW) /hpf Urine Mucus Few (FEW) /hpf SARS-CoV-2 RNA (ROSARIO) (NEGATIVE) 11/28/20 11/28/20 Range/Units 08:20 09:05 WBC (3.98-10.04) K/mm3 RBC (3.98-5.22) M/mm3 Hgb (11.2-15.7) gm/dl Hct (34.1-44.9) % MCV (79.4-94.8) fl MCH (25.6-32.2) pg MCHC (32.2-35.5) g/dl RDW Std Deviation (36.4-46.3) fL Plt Count (182-369) K/mm3 MPV (9.4-12.3) fl Neut % (Auto) (34.0-71.1) % Lymph % (Auto) (19.3-51.7) % [place] % (Auto) (4.7-12.5) % Eos % (Auto) (0.7-5.8) Baso % (Auto) (0.1-1.2) % Neut # (Auto) (1.56-6.13) K/mm3 Lymph # (Auto) (1.18-3.74) K/mm3 [facility] # (Auto) (0.24-0.36) K/mm3 Eos # (Auto) (0.04-0.36) K/mm3 Baso # (Auto) (0.01-0.08) K/mm3 Manual Slide Review Sodium (136-145) mEq/L Potassium (3.5-5.1) mEq/L Chloride (98-107) mEq/L Carbon Dioxide (21-32) mEq/L Anion Gap (5-15) BUN (7-18) mg/dL Creatinine (0.55-1.02) mg/dL Est Cr Clr Drug Dosing mL/min Estimated GFR (MDRD) (>60) mL/min BUN/Creatinine Ratio (14-18) Glucose (74-106) mg/dL Calcium (8.5-10.1) mg/dL Total Bilirubin (0.2-1.0) mg/dL AST (15-37) U/L ALT (14-59) U/L Alkaline Phosphatase (46-116) U/L Total Protein (6.4-8.2) g/dl Albumin (3.4-5.0) g/dl Globulin gm/dL Albumin/Globulin Ratio (1-2) Lipase (73-393) U/L HCG, Qual Negative (NEGATIVE) Urine Color (Yellow) Urine Appearance (Clear) Urine pH (5.0-8.0) Ur Specific [place] (1.005-1.030) Urine Protein (Negative) Urine Glucose (UA) (Negative) Urine Ketones (Negative) Urine Occult Blood (Negative) Urine Nitrite (Negative) Urine Bilirubin (Negative) Urine Urobilinogen (0.2-1.0) Ur Leukocyte Esterase (Negative) Urine RBC (0-5) /hpf Urine WBC (0-5) /hpf Ur Epithelial Cells (0-5) /hpf Urine Bacteria (FEW) /hpf Urine Mucus (FEW) /hpf SARS-CoV-2 RNA (ROSARIO) Negative (NEGATIVE) Meds: Medications Generic Name Dose Route Start Last Admin Trade Name Freq PRN Reason Stop Dose Admin Sodium Chloride 500 mls @ 1,000 mls/hr 11/28/20 08:30 11/28/20 08:55 Normal Saline IV 1,000 mls/hr .BOLUS SONIA Administration Sodium Chloride 10 ml 11/28/20 08:20 11/28/20 08:56 Sodium Chloride 0.9% 10 Ml Syringe FLUSH 10 ml ASDIRECTED PRN Administration Keep Vein Open Discontinued Medications Generic Name Dose Route Start Last Admin Trade Name Freq PRN Reason Stop Dose Admin Hydromorphone HCl 0.5 mg 11/28/20 08:57 11/28/20 09:01 Hydromorphone 0.5 Mg/0.5 Ml Syringe IVPUSH 11/28/20 08:58 0.5 mg ONETIME ONE Administration Ondansetron HCl 4 mg 11/28/20 08:20 11/28/20 08:56 Ondansetron 4 Mg/2 Ml Sdv IVPUSH 11/28/20 08:21 4 mg ONETIME ONE Administration - Re-Assessments/Exams Free Text/Narrative Re-Assessment/Exam: 11/28/20 08:47 I ordered an IV NS 1L bolus, zofran 4mg IV, labs and UA. 11/28/20 10:07 Her CBC looks good with a normal WBC. Her anion gap was elevated at 16.7. Her lipase is low at 62. Her HCG is negative. Her UA shows no UTI. Her COVID 19 is negative. She did want something for pain earlier. I gave her some dilaudid. She feels good after the fluids. I feel this is gastroenteritis. I will give her some zofran. Departure - Departure Time of Disposition: 10:15 Disposition: Home, Self-Care 01 Condition: Good Clinical Impression: Gastroenteritis - Discharge Information *PRESCRIPTION DRUG MONITORING PROGRAM REVIEWED*: Not Applicable *COPY OF PRESCRIPTION DRUG MONITORING REPORT IN PATIENT MELINDA: Not Applicable Referrals: Dunia Oh PA-C [Primary Care Provider] - 1 Week Forms: ED Department Discharge Additional Instructions: Drink plenty of fluids. Take zofran every 6 hours as needed for nausea or vomiting. You may try some food later today but some thing light like broth and advance as tolerated. Take tylenol or motrin for any pain. Please return if you are worse. Sepsis Event Note (ED) - Evaluation Sepsis Screening Result: No Definite Risk - Focused Exam Vital Signs: Vital Signs Temp Pulse Resp BP Pulse Ox 11/28/20 08:11 97.2 F 97 13 112/77 98 - My Orders Last 24 Hours: My Active Orders 11/28/20 08:20 Sodium Chloride 0.9% [Saline Flush] 10 ml FLUSH ASDIRECTED PRN ED Antiemetic Medication Reflex [OM.PC] Click to Edit Peripheral IV Insertion Adult [OM.PC] Urgent 11/28/20 08:21 Peripheral IV Care [RC] . DIRECTED 11/28/20 08:30 Sodium Chloride 0.9% [Normal Saline] 500 ml IV .BOLUS - Assessment/Plan Last 24 Hours: My Active Orders 11/28/20 08:20 Sodium Chloride 0.9% [Saline Flush] 10 ml FLUSH ASDIRECTED PRN ED Antiemetic Medication Reflex [OM.PC] Click to Edit Peripheral IV Insertion Adult [OM.PC] Urgent 11/28/20 08:21 Peripheral IV Care [RC] . DIRECTED 11/28/20 08:30 Sodium Chloride 0.9% [Normal Saline] 500 ml IV .BOLUS
[2020-11-28] MEDS ORDERED: HYDROmorphone 0.5 MG/0.5 ML Syringe IVPUSH ONE (08:57)
[2020-11-28 10:26] VITALS: BP 130/70; PULSE 86
== END 2020-11-28 10:26 | disposition home or self-care (01) ==
LOC: JD.ED 07:57
DX: K52.9 Noninfective gastroenteritis and colitis, unspecified (principal); Z91.048 Other nonmedicinal substance allergy status; Z20.822 Contact with and (suspected) exposure to COVID-19
CPT/HCPCS: 36415; 80053; 81001; 83690; 84703; 85025; 87635; 96374; 96375; 99284; J1170; J2405; J7030; 99283; U0002

== ENCOUNTER 2021-06-26 19:25 | Emergency (ER) | payer OTHER ==
[2021-06-26] MEDS ORDERED: Ondansetron 4 MG/2 ML SDV IVPUSH ONE (19:57)
[2021-06-26] MEDS ORDERED: Sodium Chloride 0.9% 1,000 ML IV STA ×2 (19:57→21:43)
[2021-06-26] MEDS ORDERED: Sodium Chloride 0.9% 10 ML Syringe FLUSH PRN (19:57)
[2021-06-26 20:46] VITALS: BP 115/65; PULSE 92
--- NOTE | 2021-06-26 21:19 | EDM.PDOC ---
ED HPI GENERAL MEDICAL PROBLEM - General Chief Complaint: Gastrointestinal Problem Stated Complaint: VOMITING/DIARHEA Time Seen by Provider: 06/26/21 19:34 Source of Information: Reports: Patient, RN Notes Reviewed History Limitations: Reports: No Limitations - History of Present Illness INITIAL COMMENTS - FREE TEXT/NARRATIVE: Patient is a 30-year-old female presenting to the emergency department with complaints of vomiting and diarrhea since earlier this evening. Reports onset was acute. She has had numerous episodes of both. States it is "coming out both ends". Reports feeling dizzy upon standing and having near syncopal episode. She has not eaten anything questionable and has no known sick contacts. Denies any significant abdominal pain at this time. Reports that when she was having the vomiting and diarrhea, she did have cramping. She is had no fever or chills. Denies any chronic medical conditions. - Related Data Allergies Allergy/AdvReac Type Severity Reaction Status Date / Time silver nitrate Allergy Severe Blisters Verified 06/26/21 20:22 Home Meds: Home Meds Acetaminophen [Tylenol] 650 mg PO Q6H PRN #50 tablet 10/07/14 [Rx] Ibuprofen [Motrin] 200 - 800 mg PO Q6H PRN #50 tablet 10/07/14 [Rx] Fish Oil/[place]-3 Fatty Acids [Fish Oil 1,000 MG] 1,000 mg PO DAILY 04/26/15 [History] Multivitamin [Daily Multiple Vitamin] 1 tab PO DAILY 04/26/15 [History] Ergocalciferol (Vitamin D2) [Vitamin D2] 2,000 unit PO DAILY 07/07/17 [History] Past Medical History HEENT History: Reports: Impaired Vision Gastrointestinal History: Reports: GERD Genitourinary History: Reports: Retention, Urinary, UTI, Recurrent 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 , 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 ectopic Musculoskeletal History: Reports: Fracture Other Musculoskeletal History: spinal fusion 2002 for scolosis and fractured 4th finger 2007 - Past Surgical History Other Female Surgeries/Procedures: laparoscopy x2 2013 and 2015 ectopic pregnacy, bilateral salpingectomy Other Musculoskeletal Surgeries/Procedures:: spinal fusion 2002 for scolosis and fractured 4th finger 2007 Social & Family History - Family History Family Medical History: No Pertinent Family History - Tobacco Use Tobacco Use Status *Q: Never Tobacco User - Caffeine Use Caffeine Use: Reports: Tea - Recreational Drug Use Recreational Drug Use: No ED ROS GENERAL - Review of Systems Review Of Systems: See Below Constitutional: Reports: No Symptoms HEENT: Reports: No Symptoms Respiratory: Reports: No Symptoms Cardiovascular: Reports: Lightheadedness. Denies: Chest Pain, Dyspnea on Exertion, Syncope Endocrine: Reports: No Symptoms GI/Abdominal: Reports: Abdominal Pain (intermittent cramping), Diarrhea, Nausea, Vomiting. Denies: Hematemesis, Hematochezia : Reports: No Symptoms. Denies: Dysuria Musculoskeletal: Reports: No Symptoms Skin: Reports: No Symptoms Neurological: Reports: Dizziness. Denies: Confusion, Headache Psychiatric: Reports: No Symptoms Hematologic/Lymphatic: Reports: No Symptoms Immunologic: Reports: No Symptoms ED EXAM, GI/ABD - Physical Exam Exam: See Below Exam Limited By: No Limitations General Appearance: Alert, WD/WN, No Apparent Distress Respiratory/Chest: No Respiratory Distress, Lungs Clear, Normal Breath Sounds, No Accessory Muscle Use, Chest Non-Tender Cardiovascular: Normal Peripheral Pulses, Regular Rate, Rhythm, No Edema, No Gallop, No JVD, No Murmur, No Rub GI/Abdominal Exam: Normal Bowel Sounds, Soft, No Organomegaly, No Distention, No Abnormal Bruit, No Mass, Pelvis Stable, Tender (Mild generalized abdominal tenderness, slightly worse in the epigastrium.) Neurological: Alert, Oriented, CN II-XII Intact, Normal Cognition, Normal Gait, Normal Reflexes, No Motor/Sensory Deficits Psychiatric: Normal Affect, Normal Mood Skin Exam: Warm, Dry, Intact, Normal Color, No Rash Course - Vital Signs Last Recorded V/S: Last Vital Signs Temp 98.6 F 06/26/21 19:37 Pulse 92 06/26/21 20:45 Resp 18 06/26/21 20:45 BP 115/65 06/26/21 20:45 Pulse Ox 100 06/26/21 20:45 - Orders/Labs/Meds Labs: Laboratory Tests 06/26/21 06/26/21 06/26/21 Range/Units 21:15 21:15 21:40 WBC 12.95 H (3.98-10.04) K/mm3 RBC 5.01 (3.98-5.22) M/mm3 Hgb 14.5 (11.2-15.7) gm/dl Hct 44.1 (34.1-44.9) % MCV 88.0 (79.4-94.8) fl MCH 28.9 (25.6-32.2) pg MCHC 32.9 (32.2-35.5) g/dl RDW Std Deviation 43.4 (36.4-46.3) fL Plt Count 258 (182-369) K/mm3 MPV 10.4 (9.4-12.3) fl Neut % (Auto) 91.0 H (34.0-71.1) % Lymph % (Auto) 3.1 L (19.3-51.7) % [place] % (Auto) 5.0 (4.7-12.5) % Eos % (Auto) 0.6 L (0.7-5.8) Baso % (Auto) 0.1 (0.1-1.2) % Neut # (Auto) 11.79 H (1.56-6.13) K/mm3 Lymph # (Auto) 0.40 L (1.18-3.74) K/mm3 [place] # (Auto) 0.65 H (0.24-0.36) K/mm3 Eos # (Auto) 0.08 (0.04-0.36) K/mm3 Baso # (Auto) 0.01 (0.01-0.08) K/mm3 Manual Slide Review Abnormal smear Sodium 145 (136-145) mEq/L Potassium 3.7 (3.5-5.1) mEq/L Chloride 108 H (98-107) mEq/L Carbon Dioxide 25 (21-32) mEq/L Anion Gap 15.7 H (5-15) BUN 16 (7-18) mg/dL Creatinine 0.9 (0.55-1.02) mg/dL Est Cr Clr Drug Dosing 85.56 mL/min Estimated GFR (MDRD) > 60 (>60) mL/min BUN/Creatinine Ratio 17.8 (14-18) Glucose 98 (70-99) mg/dL Calcium 8.2 L (8.5-10.1) mg/dL Total Bilirubin 0.9 (0.2-1.0) mg/dL AST 18 (15-37) U/L ALT 25 (14-59) U/L Alkaline Phosphatase 69 (46-116) U/L C-Reactive Protein 0.7 (<1.0) mg/dL Total Protein 7.8 (6.4-8.2) g/dl Albumin 3.9 (3.4-5.0) g/dl Globulin 3.9 gm/dL Albumin/Globulin Ratio 1.0 (1-2) Lipase 54 L (73-393) U/L Urine Color Dark yellow (Yellow) Urine Appearance Clear (Clear) Urine pH 6.0 (5.0-8.0) Ur Specific [place] > or = 1.030 (1.005-1.030) Urine Protein 1+ H (Negative) Urine Glucose (UA) Negative (Negative) Urine Ketones 1+ H (Negative) Urine Occult Blood Negative (Negative) Urine Nitrite Negative (Negative) Urine Bilirubin Negative (Negative) Urine Urobilinogen 0.2 (0.2-1.0) Ur Leukocyte Esterase Negative (Negative) Urine RBC 0-5 (0-5) /hpf Urine WBC 0-5 (0-5) /hpf Ur Squamous Epith Cells 0-5 (0-5) /hpf Urine Bacteria Moderate H (FEW) /hpf Urine Mucus Many H (FEW) /hpf Urine HCG, Qual (NEGATIVE) 06/26/21 Range/Units 21:40 WBC (3.98-10.04) K/mm3 RBC (3.98-5.22) M/mm3 Hgb (11.2-15.7) gm/dl Hct (34.1-44.9) % MCV (79.4-94.8) fl MCH (25.6-32.2) pg MCHC (32.2-35.5) g/dl RDW Std Deviation (36.4-46.3) fL Plt Count (182-369) K/mm3 MPV (9.4-12.3) fl Neut % (Auto) (34.0-71.1) % Lymph % (Auto) (19.3-51.7) % [place] % (Auto) (4.7-12.5) % Eos % (Auto) (0.7-5.8) Baso % (Auto) (0.1-1.2) % Neut # (Auto) (1.56-6.13) K/mm3 Lymph # (Auto) (1.18-3.74) K/mm3 [place] # (Auto) (0.24-0.36) K/mm3 Eos # (Auto) (0.04-0.36) K/mm3 Baso # (Auto) (0.01-0.08) K/mm3 Manual Slide Review Sodium (136-145) mEq/L Potassium (3.5-5.1) mEq/L Chloride (98-107) mEq/L Carbon Dioxide (21-32) mEq/L Anion Gap (5-15) BUN (7-18) mg/dL Creatinine (0.55-1.02) mg/dL Est Cr Clr Drug Dosing mL/min Estimated GFR (MDRD) (>60) mL/min BUN/Creatinine Ratio (14-18) Glucose (70-99) mg/dL Calcium (8.5-10.1) mg/dL Total Bilirubin (0.2-1.0) mg/dL AST (15-37) U/L ALT (14-59) U/L Alkaline Phosphatase (46-116) U/L C-Reactive Protein (<1.0) mg/dL Total Protein (6.4-8.2) g/dl Albumin (3.4-5.0) g/dl Globulin gm/dL Albumin/Globulin Ratio (1-2) Lipase (73-393) U/L Urine Color (Yellow) Urine Appearance (Clear) Urine pH (5.0-8.0) Ur Specific [place] (1.005-1.030) Urine Protein (Negative) Urine Glucose (UA) (Negative) Urine Ketones (Negative) Urine Occult Blood (Negative) Urine Nitrite (Negative) Urine Bilirubin (Negative) Urine Urobilinogen (0.2-1.0) Ur Leukocyte Esterase (Negative) Urine RBC (0-5) /hpf Urine WBC (0-5) /hpf Ur Squamous Epith Cells (0-5) /hpf Urine Bacteria (FEW) /hpf Urine Mucus (FEW) /hpf Urine HCG, Qual Negative (NEGATIVE) Meds: Medications Discontinued Medications Generic Name Dose Route Start Last Admin Trade Name Freq PRN Reason Stop Dose Admin Sodium Chloride 1,000 mls @ 999 mls/hr 06/26/21 19:57 06/26/21 20:30 Normal Saline IV 06/26/21 20:57 999 mls/hr NOW STA Administration Sodium Chloride 1,000 mls @ 999 mls/hr 06/26/21 21:43 06/26/21 21:58 Normal Saline IV 06/26/21 22:43 999 mls/hr NOW STA Administration Ondansetron HCl 4 mg 06/26/21 19:57 06/26/21 20:32 Ondansetron 4 Mg/2 Ml Sdv IVPUSH 06/26/21 19:58 4 mg ONETIME ONE Administration Sodium Chloride 10 ml 06/26/21 19:57 06/26/21 20:48 Sodium Chloride 0.9% 10 Ml Syringe FLUSH 10 ml ASDIRECTED PRN Administration Keep Vein Open - Re-Assessments/Exams Free Text/Narrative Re-Assessment/Exam: 30-year-old female presenting to the emergency department with complaints of acute onset of severe vomiting and diarrhea. Began around 1730 this evening. States she has had numerous episodes and now feels very dizzy upon standing and had a number of near syncopal episodes. Exam is unremarkable. She has no abdominal tenderness. I have ordered blood work, urinalysis, urine hCG. I will give 1 L bolus of normal saline as well as Zofran 4 mg IV. 06/26/21 22:04 Hematology significant for WBC minimally elevated at 12.95, chloride 108, anion gap 15.7. Otherwise unremarkable. Urinalysis is negative for infection. Patient is feeling better but is requesting a second liter of fluids. I have ordered this. Offered Zofran to go home with, however she denied the need for this stating she has some at home. Discussed return precautions. Discharge instructions as documented. Departure - Departure Time of Disposition: 22:05 Disposition: Home, Self-Care 01 Condition: Good Clinical Impression: Vomiting and diarrhea - Discharge Information Instructions: Diarrhea, Adult, Nausea and Vomiting, Adult Referrals: Mayela Griggs MD [Primary Care Provider] - Forms: ED Department Discharge Additional Instructions: You were seen in the emergency department today for nausea, vomiting, diarrhea, and dizziness. Work-up included blood work and urinalysis. Results of your work-up found to be overall normal with the exception of being slightly dehydrated. You received IV fluids and nausea medication in the ER which did significantly improve your symptoms. Recommended to go home and rest. I would recommend a clear liquid diet for the next 24 to 72 hours then slowly advance as tolerated. You should experience any new or worsening symptoms, please not hesitate to return to the emergency department for reevaluation. Sepsis Event Note (ED) - Evaluation Sepsis Screening Result: No Definite Risk
== END 2021-06-26 23:06 | disposition home or self-care (01) ==
LOC: JD.ED 19:25
DX: R11.10 Vomiting, unspecified (principal); R19.7 Diarrhea, unspecified; Z91.048 Other nonmedicinal substance allergy status
CPT/HCPCS: 36415; 80053; 81001; 81025; 83690; 85025; 86140; 96374; 99284; J2405; J7030